=== PATIENT | female | born 1980 | race Caucasian/White ===

== ENCOUNTER 2017-05-30 15:15 | Inpatient (IN) | payer OTHER, SELFPAY ==
[2017-05-30] MEDS ORDERED: ISOVUE-370 76%-LOCM 1 ML ONE (15:44)
[2017-05-30 16:56] LABS: Bilirubin Negative (Negative); Blood, Urine Negative (Negative); Clarity CLEAR (Clear); Glucose, Urine (Dipstick) Negative (Negative); Leukocyte Negative (Negative); Nitrite Negative (Negative); Protein, Urine (Dipstick) 30 mg/dL (Neg-Trace); Specific Gravity, Urine 1.031 (1.002-1.036)
[2017-05-30 16:58] LABS: Bacteria/HPF Rare-Few HPF (None Seen); Hyaline Casts/LPF 0-3 HYALINE CAST LPF (0-3 Hyaline); Pathc Cast-AUWi Flag 0.13 (0-2.49); RBC/HPF 0-3 HPF (0-3); Squamous Epithelial 0-3 HPF (0-3); WBC/HPF 0-3 HPF (0-3)
[2017-05-30 17:03] LABS: Pregnancy Test - Urine (BHCG) Negative (Negative); Pregu Control Background? CLEAR/WHITE (CLR/WHITE); Pregu Control Bar Appear? YES (CONTROL BAR); Specific Gravity 1.031 (1.002-1.036)
[2017-05-30 17:20] LABS: #Basophils 0.1 thou/uL (0.0-0.2); #Eosinphils 0.1 thou/uL (0.0-0.7); #Lymphocytes 1.6 thou/uL (1.20-3.40); #Monocytes 0.4 thou/uL (0.11-0.59); %Eosinophils 1.4 % (0.0-10.0); %Lymphocytes 21.7 % (21.0-51.0); %Monocytes 5.7 % (0.0-10.0); %Neutrophils 70.2 % (42.0-75.0); Hemoglobin 12.6 g/dL (12.0-16.0); Mean Corpuscular HGB CONC 32.1 g/dL (32.0-36.0); Mean Corpuscular Hemoglobin 29.4 pg (27.0-31.0); Mean Corpuscular Volume 91.6 fl (81.0-99.0); Mean Platelet Volume 7.3 fL (7.4-10.4); Platelet Count 373 thou/uL (130-400); RBC Distribution Width 12.4 % (11.5-14.5); Red Blood Cell (RBC) Count 4.28 mill/uL (4.20-5.40); White Blood Cell (WBC) Count 7.2 thou/uL (4.8-10.8)
--- NOTE | 2017-05-30 17:40 | ULT ---
LEFT LOWER EXTREMITY VENOUS DUPLEX SONOGRAM: 05/30/17 HISTORY: Left leg pain and edema. FINDINGS: Good color and spectral doppler flow are present throughout the visualized deep venous structures of the left lower extremity. There is incomplete compression of the common femoral and femoral veins. Th e popliteal, posterior tibial and deep femoral veins are compressible. Lymph node is noted at the lef t groin. IMPRESSION: Deep venous thrombosis of the left leg involving the common femoral and femoral veins. Findings were called to the ER physician at 1645 hours. Code CR POS: [facility]
[2017-05-30 17:42] LABS: ALT (SGPT) 15 U/L (8-55); AST (SGOT) 23 U/L (5-34); Albumin 3.9 g/dL (3.5-5.0); Alkaline Phosphatase 85 U/L (40-150); Anion Gap 12 mmol/L (10-20); BUN (Urea Nitrogen) 14 mg/dL (7.0-18.7); Bilirubin, Total 0.2 mg/dL (0.2-1.2); Calc. Creatinine Clearance 0 mL/min (70-130); Calcium 9.8 mg/dL (7.8-10.44); Carbon Dioxide 26 mmol/L (22-29); Chloride 105 mmol/L (98-107); Estimated GFR-MDRD 77; Globulin 3.4 g/dL (2.4-3.5); Glucose 96 mg/dL (70-105); Potassium 4.3 mmol/L (3.5-5.1); Protein, Total 7.3 g/dL (6.0-8.3); Sodium 139 mmol/L (136-145)
[2017-05-30] MEDS ORDERED: Heparin 5,000 UNITS/ML VIAL ONE (19:31)
[2017-05-30] MEDS ORDERED: Heparin 25,000 units/D5W 500 ML ONE (19:31)
--- NOTE | 2017-05-30 20:53 | CT ---
CT ANGIO OF CHEST PERFORMED WITH INTRAVENOUS CONTRAST ENHANCEMENT WITH 3D RECONSTRUCTIONS: 05/30/17 HISTORY: Tachycardia. Right leg swelling. The lungs show some pleural based parenchymal changes in the right lower lobe along the major fissure . This was associated with evidence for some right lower lobe pulmonary emboli. I do not seen any ot er definitive emboli. The left lung is clear. No significant mediastinal or hilar adenopathy. The liver parenchymal shows a hypodensity within the dome of the liver, most likely a cyst. Partially visualized left kidney shows what may be dilatation of the upper collection. There also appears to b e cortical thinning. I cannot exclude an obstructing calculus. IMPRESSION: 1. Right lower lobe pulmonary embolus. 2. Slight dilatation to what is either a parapelvic cyst or dilatation to the left collecting sy stem. I only see a portion of the kidney. If indicated, CT for evaluation for a ureteral calculus is recommended. Findings discussed with Dr. Jara. POS: [facility]
[2017-05-30] MEDS ORDERED: Heparin 25,000 units/D5W 500 ML IVPB SCH ×2 (20:55→23:15)
[2017-05-30] MEDS ORDERED: Heparin 10,000 UNITS/ 10 ML VIAL SLOW IVP SCH ×2 (20:55→23:15)
[2017-05-30] MEDS ORDERED: Labetalol HCl 100 MG/20 ML VIAL SLOW IVP PRN ×2 (20:55→23:04)
[2017-05-30] MEDS ORDERED: Acetaminophen 325 MG TAB PO PRN ×2 (20:55→21:13)
[2017-05-30] MEDS ORDERED: Ondansetron HCl/PF 4 MG/2 ML Vial IVP PRN ×2 (21:13→23:04)
[2017-05-30] MEDS ORDERED: Ondansetron ODT 4 MG TAB SL PRN ×2 (21:13→23:04)
[2017-05-30 21:26] LABS: Hemoglobin 12.2 g/dL (12.0-16.0); Platelet Count 378 thou/uL (130-400)
[2017-05-30 21:37] LABS: Prothrombin Time 13.7 SEC (12.0-14.7)
[2017-05-30 22:07] LABS: D-Dimer Test 5.38 *mcg/mL (0.27-0.43)
[2017-05-30 22:19] LABS: PTT Greater than 250.0 SEC (22.9-36.1)
[2017-05-30 22:28] VITALS: BMI 27.9
[2017-05-30 23:31] LABS: PTT 165.7 SEC (22.9-36.1)
--- NOTE | 2017-05-31 03:58 | HP-2 ---
TIME AND DATE OF SERVICE: 19:30 on 05/30/2017 CODE STATUS: FULL CODE. PRIMARY CARE PHYSICIAN: Dr. Zaidi. ATTENDING: Dr. Livingston. RESIDENT: Jim Whitfield M.D. HISTORIAN: Patient. CHIEF COMPLAINT: Left leg swelling for 3 weeks. HISTORY OF PRESENT ILLNESS: Nora Del Rosario is a 36-year-old female with past medical history of kidney stones, who presents with 3-week history of left lower leg swelling and redness. She has had the sw elling and redness began 3 weeks ago and initially improved, but then started getting worse again aft er a few days that has progressively worsened since then. She denies any periods of prolonged sittin g or traveling. She denies any use of control, last use was in 2011. She denies any prior his tory of clotting or bruising issues or bleeding problems. She denies any family history of bleeding or clotting issues. Patient describes the pain as dull and worsened with movement and it has associa yojana with erythema and warmth, nothing has improved the pain, swelling, or redness. In the ER, the pa tient was started on heparin 6480 units IV push followed by heparin 18 units/kilogram per hour infusi on. PAST MEDICAL HISTORY: 1. Kidney stones. 2. Fibroids. 3. Endometriosis. PAST SURGICAL HISTORY: None. ALLERGIES: No known drug allergies. MEDICATIONS: 1. Adderall 30 mg p.o. b.i.d. 2. Motrin 800 mg p.o. p.r.n. FAMILY HISTORY: Father had liver disease. SOCIAL HISTORY: Patient denies any drugs or tobacco use, but endorses drinking socially. REVIEW OF SYSTEMS: Twelve-point review of systems including general, eyes, ENT, respiratory, CV, GI, , skin, musculoskeletal, neuro, and psych were all reviewed and within normal limits, unless other lópez stated in the HPI. PHYSICAL EXAMINATION: VITAL SIGNS: Blood pressure 178/121, pulse 91, respiratory rate 16, temperature 98.7, pulse ox 100% on room air. Current weight 81 kilograms. GENERAL: Patient is alert and oriented x3, in no acute distress. Well-developed, well-nourished, an d appropriately interactive. EYES: Pupils equal, round, reactive to light and accommodation. Extraocular muscles intact. Conjun ctivae within normal limits. ENT: Tympanic membranes pearly ptunam without bulging or erythema. Nasal mucosa and oropharynx within normal limits. NECK: Supple without lymphadenopathy or thyromegaly. CARDIOVASCULAR: Regular rate and rhythm. No murmurs or gallops. RESPIRATORY: Normal effort, no retractions. LUNGS: Clear to auscultation bilaterally. SKIN: Patient's left lower extremity has diffuse erythema and 2+ nonpitting edema. ABDOMEN: Soft, nontender, bowel sounds x4. No masses or distention. EXTREMITIES: No clubbing or cyanosis. There is 2+ nonpitting edema in the left lower extremity. MUSCULOSKELETAL: Structure and tone within normal limits. Full range of motion. NEUROLOGIC: No focal deficits. Sensation within normal limits. PSYCHIATRIC: Appropriate. LABORATORY DATA: White blood cell count 7.2, hemoglobin 12.6, hematocrit 39.2, platelets 373. Sodiu m 139, potassium 4.3, chloride 105, carbon dioxide 26, BUN 14, creatinine 0.83, glucose 96, calcium 9 .8. total protein 7.3, albumin 3.9, total bilirubin 0.2, AST 23, ALT 15, alkaline phosphatase 85. D -dimer 5.36. test was negative. UA was unremarkable. CT of the chest showed no filling d efects; however, there was a right lower lobe parenchymal changes consistent with right lower lobe pu lmonary embolism. Left lower extremity venous Doppler was significant for common femoral and femoral vein DVT. ASSESSMENT AND PLAN: A 36-year-old female with pulmonary embolism and deep venous thrombosis. 1. Pulmonary embolism. Patient is hemodynamically stable, so we will admit to tele. CT findings we re consistent with right lower lobe pulmonary embolism, which was likely secondary to deep venous thr ombosis. We will continue heparin. We will check coagulation panel. The patient is uninsured, so w e will need to bridge to warfarin. 2. Deep venous thrombosis in left lower extremity. Continue heparin. Pain management. We will lynnette ck coag panel. 3. Elevated blood pressure. P.r.n. labetalol. Continue to monitor vital signs. 4. Attention-deficit disorder, hold Adderall. 5. Code status: FULL CODE. 6. Activity: Ambulate with assist and walking program. 7. Diet: Regular. DISPOSITION AND LENGTH OF HOSPITAL STAY: 2 days. Symptomatic medications will be provided. History and physical exam as well as management were discussed with Dr. iLvingston.
--- NOTE | 2017-05-31 08:48 | PDOC.FM ---
- Subjective Subjective: Patient is lying comfortably in bed. Reports no SOB or CP. Leg swelling continues. - Objective MAR Reviewed: Yes Vital Signs & Weight: Vital Signs (12 hours) Temp Pulse Resp BP BP Pulse Ox 05/31/17 07:55 97.2 F L 77 16 145/89 H 96 05/31/17 04:27 97 05/31/17 04:08 97.6 F 80 11 L 127/76 97 05/31/17 01:43 95 135/86 05/31/17 00:20 101 H 206/106 H 99 05/31/17 00:00 97.7 F 96 13 206/106 H 99 05/30/17 22:35 98.4 F 91 18 100 Weight Weight 78.471 kg I&O: 05/30/17 05/31/17 06/01/17 06:59 06:59 06:59 Intake Total 313 Balance 313 Result Diagrams: 05/30/17 21:09 05/30/17 17:10 Phys Exam - Physical Examination Constitutional: NAD HEENT: moist MMs Respiratory: no wheezing, no rales, no rhonchi decreased breath sounds RLL Cardiovascular: RRR, no significant murmur Gastrointestinal: soft, non-tender L leg with 2+ edema from foot to thigh, warm, slightly erythematous Neurological: moves all 4 limbs Psychiatric: A&O x 3 Dx/Plan (1) DVT (deep venous thrombosis) Code(s): I82.409 - ACUTE EMBOLISM AND THOMBOS UNSP DEEP VN UNSP LOWER EXTREMITY Status: Acute (2) Pulmonary embolism Code(s): I26.99 - OTHER PULMONARY EMBOLISM WITHOUT ACUTE COR PULMONALE Status : Acute (3) Hypertensive urgency Code(s): I16.0 - HYPERTENSIVE URGENCY Status: Acute - Plan Plan: DVT with PE: - Patient on heprin ggt, will transition to Lovenox today - vs stable, not requiring O2 - uknown cause, labs pending to r/o coagulopathy - CM consult for outpatient anticoagulation financial help since uninsured Hypertensive Urgency: - resolved, likely related to stress - continue to monitor - Labetalol prn
[2017-05-31 11:17] LABS: Protein C Activity 122 % (78-152)
[2017-05-31] MEDS ORDERED: Enoxaparin Sodium 80 MG/0.8 ML SYRINGE SC SCH ×3 (11:30→21:00)
[2017-05-31 11:36] LABS: Factor VIII Test 229.3 % ACTIVE (56-157)
[2017-05-31 12:36] LABS: Prothrombin Time 13.4 SEC (12.0-14.7)
[2017-05-31 12:45] LABS: PTT 143.8 SEC (22.9-36.1)
--- NOTE | 2017-05-31 13:23 | ADD-PRG ---
DATE OF SERVICE: 05/31/2017 This is an addendum to the note of Dr. Tuyet Rubi. Ms. Del Rosario is a pleasant 36-year-old white female patient admitted with DVT and pulmonary embolus. S he has never had pulmonary embolus before; however, she does have a history of miscarriage several ye ars ago. She has no family history of thrombophilia to her knowledge, although she states that her f ather has coagulopathy. In the event, she has been started on Lovenox and given that she has no insu charles Coumadin. She is hemodynamically stable and in no distress. We have also initiated a thrombop hilia workup given her young age and prior history of miscarriage as well as unprovoked pulmonary emb olus.
[2017-05-31] MEDS: hydrALAZINE 20 MG/ML VIAL SLOW IVP PRN (16:39)
[2017-05-31] MEDS ORDERED: Warfarin Sodium 5 MG TAB PO SCH (17:00)
[2017-06-01 05:30] LABS: PTT 30.8 SEC (22.9-36.1); Prothrombin Time 13.3 SEC (12.0-14.7)
--- NOTE | 2017-06-01 07:03 | PDOC.FM ---
- Subjective Subjective: Pt seen at bedside in NAD. JENNIFER overnight. Pt denies FRANKLIN, CP, SOB, abd pain. - Objective MAR Reviewed: Yes Vital Signs & Weight: Vital Signs (12 hours) Temp Pulse Resp BP Pulse Ox 06/01/17 04:50 98.0 F 93 16 142/92 H 98 05/31/17 20:35 98.0 F 97 16 97 05/31/17 19:30 98.0 F 97 16 159/81 H 97 Weight Weight 79.061 kg I&O: 05/31/17 06/01/17 06/02/17 06:59 06:59 06:59 Intake Total 313 2360 Output Total 1800 Balance 313 560 Result Diagrams: 05/30/17 21:09 05/30/17 17:10 <Jamel Bradley - Last Filed: 06/01/17 07:51> - Objective Vital Signs & Weight: Vital Signs (12 hours) Temp Pulse Resp BP BP Pulse Ox 06/01/17 09:23 88 172/97 H 06/01/17 08:18 98 F 88 16 172/97 H 98 06/01/17 04:50 98.0 F 93 16 142/92 H 98 Weight Weight 79.061 kg I&O: 05/31/17 06/01/17 06/02/17 06:59 06:59 06:59 Intake Total 313 2360 Output Total 1800 Balance 313 560 Result Diagrams: 05/30/17 21:09 05/30/17 17:10 <Tu Butler - Last Filed: 06/01/17 14:15> Phys Exam - Physical Examination Constitutional: NAD HEENT: moist MMs Respiratory: no wheezing, clear to auscultation bilateral Cardiovascular: RRR, no significant murmur Gastrointestinal: soft, non-tender Musculoskeletal: pulses present, edema present LLE 1+, slightly erythematous, improved per pt Neurological: moves all 4 limbs Psychiatric: A&O x 3 <Jamel Bradley - Last Filed: 06/01/17 07:51> Dx/Plan (1) DVT (deep venous thrombosis) Code(s): I82.409 - ACUTE EMBOLISM AND THOMBOS UNSP DEEP VN UNSP LOWER EXTREMITY Status: Acute QualifierTitle: DVT location: lower extremity Affected thrombotic vein of extremity: femoral Chronicity: acute Laterality: left Qualified Code(s) : I82.412 - Acute embolism and thrombosis of left femoral vein Plan: -pt presented with lower extremity pain and swelling. found to have LLE DVT and possible PE. -no previous DVTs and no known risk factors. no known family history of clotting disorders. pt does have hx of miscarriage. 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 (2) Pulmonary embolism Code(s): I26.99 - OTHER PULMONARY EMBOLISM WITHOUT ACUTE COR PULMONALE Status : Acute QualifierTitle: Pulmonary embolism type: other Chronicity: acute Acute cor pulmonale presence: without acute cor pulmonale Qualified Code(s): I26.99 - Other pulmonary embolism without acute cor pulmonale Plan: -no signs of hemodynamic instability, plan per above -continue to monitor (3) HTN (hypertension) Code(s): I10 - ESSENTIAL (PRIMARY) HYPERTENSION Status: Acute QualifierTitle: Hypertension type: unspecified Qualified Code(s): I10 - Essential (primary) hypertension Plan: -pt initially thought to have elevated BP 2/2 stress -BPs have continued to be above 140/90 and required PRN medications -will start pt on amlodipine daily and cont to monitor - Plan Plan: dispo: Pt stable and doing well. Continue to bridge to warfarin and monitor. <Jamel Bradley - Last Filed: 06/01/17 07:51> Attending Addendum - Attending Addendum I personally evaluated the patient and discussed the management with Dr. Bradley. I agree with the History, Examination, Assessment and Plan documented above with any addition or exceptions noted below. She feels well except for slight stuffy nose and slight dry cough. INR 1.0. Continue Lovenox and Warfarin. <Tu Butler - Last Filed: 06/01/17 14:15>
[2017-06-01] MEDS ORDERED: Amlodipine 5 MG TAB PO SCH (09:00)
[2017-06-01] MEDS: Enoxaparin Sodium 80 MG/0.8 ML SYRINGE SC SCH ×2 (09:24→20:57)
--- NOTE | 2017-06-01 13:28 | EKG ---
Test Reason : Blood Pressure : / mmHG Vent. Rate : 104 BPM Atrial Rate : 104 BPM P-R Int : 128 ms QRS Dur : 074 ms QT Int : 352 ms P-R-T Axes : 043 048 039 degrees QTc Int : 462 ms Sinus tachycardia Minimal voltage criteria for LVH, may be normal variant Borderline ECG Confirmed by SOULEYMANE ALAN ([id number]), newspaper photo editor SHEBA MANNING ([id number]) on 06/01/2017 1:27:33 PM Referred By: Confirmed By:SOULEYMANE ALAN
[2017-06-01] MEDS ORDERED: Warfarin Sodium 7.5 MG TAB PO SCH (17:00)
[2017-06-01 21:05] LABS: Platelet Count 383 thou/uL (130-400)
[2017-06-02 05:30] LABS: PTT 36.9 SEC (22.9-36.1); Prothrombin Time 12.8 SEC (12.0-14.7)
--- NOTE | 2017-06-02 07:01 | PDOC.FM ---
- Subjective Subjective: Pt seen at bedside in NAD. JENNIFER overnight. Pt denies FRANKLIN, CP, SOB, abd pain. - Objective MAR Reviewed: Yes Vital Signs & Weight: Vital Signs (12 hours) Temp Pulse Resp BP Pulse Ox 06/02/17 04:00 97.8 F 94 24 H 173/88 H 98 06/01/17 20:00 97.9 F 93 18 168/95 H 100 06/01/17 19:40 97.9 F 93 18 100 Weight Weight 79.742 kg I&O: 05/31/17 06/01/17 06/02/17 06:59 06:59 06:59 Intake Total 313 2360 1200 Output Total 1800 1200 Balance 313 560 0 Result Diagrams: 06/01/17 20:58 05/30/17 17:10 <Jamel Bradley - Last Filed: 06/02/17 07:51> - Objective Vital Signs & Weight: Vital Signs (12 hours) Temp Pulse Resp BP BP Pulse Ox 06/02/17 11:30 98.6 F 98 18 178/98 H 97 06/02/17 08:47 87 162/96 H 06/02/17 08:45 97.8 F 87 18 162/96 H 98 06/02/17 04:00 97.8 F 94 24 H 173/88 H 98 Weight Weight 79.742 kg I&O: 06/01/17 06/02/17 06/03/17 06:59 06:59 06:59 Intake Total 2360 1200 Output Total 1800 1200 Balance 560 0 Result Diagrams: 06/01/17 20:58 05/30/17 17:10 <Tu Butler - Last Filed: 06/02/17 14:27> Phys Exam - Physical Examination Constitutional: NAD HEENT: moist MMs Respiratory: no wheezing, clear to auscultation bilateral Cardiovascular: RRR, no significant murmur Gastrointestinal: soft, non-tender Musculoskeletal: pulses present, edema present LLE 1+, slightly erythematous Neurological: moves all 4 limbs Psychiatric: A&O x 3 Skin: cap refill <2 seconds <Jamel Bradley - Last Filed: 06/02/17 07:51> Dx/Plan (1) DVT (deep venous thrombosis) Code(s): I82.409 - ACUTE EMBOLISM AND THOMBOS UNSP DEEP VN UNSP LOWER EXTREMITY Status: Acute QualifierTitle: DVT location: lower extremity Affected thrombotic vein of extremity: femoral Chronicity: acute Laterality: left Qualified Code(s) : I82.412 - Acute embolism and thrombosis of left femoral vein Plan: -pt presented with lower extremity pain and swelling. found to have LLE DVT and possible PE. -no previous DVTs and no known risk factors. no known family history of clotting disorders. pt does have hx of miscarriage. 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 (2) Pulmonary embolism Code(s): I26.99 - OTHER PULMONARY EMBOLISM WITHOUT ACUTE COR PULMONALE Status : Acute QualifierTitle: Pulmonary embolism type: other Chronicity: acute Acute cor pulmonale presence: without acute cor pulmonale Qualified Code(s): I26.99 - Other pulmonary embolism without acute cor pulmonale Plan: -no signs of hemodynamic instability, plan per above -continue to monitor (3) HTN (hypertension) Code(s): I10 - ESSENTIAL (PRIMARY) HYPERTENSION Status: Acute QualifierTitle: Hypertension type: unspecified Qualified Code(s): I10 - Essential (primary) hypertension Plan: -pt initially thought to have elevated BP 2/2 stress -BPs have continued to be above 140/90 and required PRN medications -increase to amlodipine 10 mg daily and continue to monitor - Plan Plan: dispo: Pt stable and doing well. Continue to bridge to warfarin and monitor. Continue to monitor BP. <Jamel Bradley - Last Filed: 06/02/17 07:51> Attending Addendum - Attending Addendum I personally evaluated the patient and discussed the management with Dr. Bradley. I agree with the History, Examination, Assessment and Plan documented above with any addition or exceptions noted below. Feels fine. Exam as above. BP elevated so Amlodipine increased to 10 mg daily. INR stable at 1.0 so increased warfarin to 7.5 mg. <Tu Butler - Last Filed: 06/02/17 14:27>
[2017-06-02] MEDS: Amlodipine 10 MG TAB PO SCH (08:47)
[2017-06-02] MEDS: Enoxaparin Sodium 80 MG/0.8 ML SYRINGE SC SCH ×2 (08:47→21:45)
[2017-06-02] MEDS: Acetaminophen 325 MG TAB PO PRN (15:32)
[2017-06-02] MEDS: Warfarin Sodium 10 MG TAB PO SCH (17:41)
[2017-06-03 05:41] LABS: INR-International Normal Ratio 1.1; Prothrombin Time 14.7 SEC (12.0-14.7)
[2017-06-03 05:42] LABS: PTT 40.7 SEC (22.9-36.1)
--- NOTE | 2017-06-03 08:02 | PDOC.FM ---
- Subjective Subjective: Pt seen at bedside in NAD. JENNIFER overnight. Pt denies FRANKLIN, CP, SOB, abd pain. - Objective MAR Reviewed: Yes Vital Signs & Weight: Vital Signs (12 hours) Temp Pulse Resp BP Pulse Ox 06/03/17 04:15 98.5 F 99 16 149/98 H 97 06/02/17 23:50 98.5 F 101 H 20 152/83 H 98 06/02/17 20:15 98.6 F 94 20 99 Weight Weight 79.742 kg I&O: 06/02/17 06/03/17 06/04/17 06:59 06:59 06:59 Intake Total 1200 1500 Output Total 1200 Balance 0 1500 Result Diagrams: 06/01/17 20:58 05/30/17 17:10 Additional Labs: INR 1.1 Phys Exam - Physical Examination Constitutional: NAD HEENT: moist MMs Respiratory: no wheezing, clear to auscultation bilateral Cardiovascular: RRR, no significant murmur Gastrointestinal: soft, non-tender Musculoskeletal: pulses present, edema present LLE 1+, slightly erythematous Neurological: moves all 4 limbs Psychiatric: A&O x 3 Skin: cap refill <2 seconds Dx/Plan (1) DVT (deep venous thrombosis) Code(s): I82.409 - ACUTE EMBOLISM AND THOMBOS UNSP DEEP VN UNSP LOWER EXTREMITY Status: Acute Qualifiers: DVT location: lower extremity Affected thrombotic vein of extremity: femoral Chronicity: acute Laterality: left Qualified Code(s): I82.412 - Acute embolism and thrombosis of left femoral vein Plan: -pt presented with lower extremity pain and swelling. found to have LLE DVT and possible PE. -no previous DVTs and no known risk factors. no known family history of clotting disorders. pt does have hx of miscarriage. 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 (2) Pulmonary embolism Code(s): I26.99 - OTHER PULMONARY EMBOLISM WITHOUT ACUTE COR PULMONALE Status : Acute Qualifiers: Pulmonary embolism type: other Chronicity: acute Acute cor pulmonale presence: without acute cor pulmonale Qualified Code(s): I26.99 - Other pulmonary embolism without acute cor pulmonale Plan: -no signs of hemodynamic instability, plan per above -continue to monitor (3) HTN (hypertension) Code(s): I10 - ESSENTIAL (PRIMARY) HYPERTENSION Status: Acute Qualifiers: Hypertension type: unspecified Qualified Code(s): I10 - Essential (primary ) hypertension Plan: -pt initially thought to have elevated BP 2/2 stress -BPs have continued to be above 140/90 and required PRN medications -increase to amlodipine 10 mg daily and continue to monitor - Plan Plan: dispo: Pt stable and doing well. Continue to bridge to warfarin and monitor. Continue to monitor BP.
[2017-06-03] MEDS: Amlodipine 10 MG TAB PO SCH (09:35)
[2017-06-03] MEDS: Enoxaparin Sodium 80 MG/0.8 ML SYRINGE SC SCH ×2 (09:36→21:42)
--- NOTE | 2017-06-03 15:25 | PRG ---
DATE OF SERVICE: 06/03/2017 Ms. Del Rosario's INR is still not therapeutic, and we are adjusting her Coumadin accordingly. She is in no distress. She is having no leg pain or shortness of breath. She is anxious for discharge and we will accomplish this as soon as her INR is therapeutic.
[2017-06-03] MEDS: Warfarin Sodium 10 MG TAB PO SCH (17:23)
[2017-06-03] MEDS: diphenhydrAMINE 50 MG CAP PO PRN (17:56)
[2017-06-03 21:14] LABS: Hemoglobin 12.2 g/dL (12.0-16.0); Platelet Count 378 thou/uL (130-400)
[2017-06-03] MEDS: hydrALAZINE 20 MG/ML VIAL SLOW IVP PRN (21:42)
[2017-06-04 05:55] LABS: PTT 41.6 SEC (22.9-36.1)
[2017-06-04 05:59] LABS: INR-International Normal Ratio 1.3; Prothrombin Time 16.5 SEC (12.0-14.7)
--- NOTE | 2017-06-04 07:52 | PDOC.FM ---
- Subjective Subjective: Pt seen at bedside in NAD. JENNIFER overnight but pt notes being emotional. Pt denies FRANKLIN, CP, SOB, abd pain. - Objective MAR Reviewed: Yes Vital Signs & Weight: Vital Signs (12 hours) Temp Pulse Resp BP BP Pulse Ox 06/04/17 05:21 99.3 F 110 H 06/04/17 04:53 99.3 F 118 H 18 123/76 98 06/04/17 00:27 98.9 F 123 H 18 146/88 H 100 06/03/17 21:42 105 H 168/95 H 06/03/17 20:50 98.7 F 105 H 18 98 06/03/17 20:46 98.7 F 18 98 Weight Weight 79.742 kg I&O: 06/03/17 06/04/17 06/05/17 06:59 06:59 06:59 Intake Total 1500 970 Balance 1500 970 Result Diagrams: 06/03/17 20:54 05/30/17 17:10 Additional Labs: INR 1.3 Phys Exam - Physical Examination Constitutional: NAD HEENT: moist MMs Respiratory: no wheezing, clear to auscultation bilateral Cardiovascular: RRR, no significant murmur Gastrointestinal: soft, non-tender Musculoskeletal: pulses present Neurological: moves all 4 limbs Psychiatric: normal affect, A&O x 3 Skin: cap refill <2 seconds Dx/Plan (1) DVT (deep venous thrombosis) Code(s): I82.409 - ACUTE EMBOLISM AND THOMBOS UNSP DEEP VN UNSP LOWER EXTREMITY Status: Acute Qualifiers: DVT location: lower extremity Affected thrombotic vein of extremity: femoral Chronicity: acute Laterality: left Qualified Code(s): I82.412 - Acute embolism and thrombosis of left femoral vein Plan: -pt presented with lower extremity pain and swelling. found to have LLE DVT and possible PE. -no previous DVTs and no known risk factors. no known family history of clotting disorders. pt does have hx of miscarriage. 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 (2) Pulmonary embolism Code(s): I26.99 - OTHER PULMONARY EMBOLISM WITHOUT ACUTE COR PULMONALE Status : Acute Qualifiers: Pulmonary embolism type: other Chronicity: acute Acute cor pulmonale presence: without acute cor pulmonale Qualified Code(s): I26.99 - Other pulmonary embolism without acute cor pulmonale Plan: -no signs of hemodynamic instability, plan per above -continue to monitor (3) HTN (hypertension) Code(s): I10 - ESSENTIAL (PRIMARY) HYPERTENSION Status: Acute Qualifiers: Hypertension type: unspecified Qualified Code(s): I10 - Essential (primary ) hypertension Plan: -pt initially thought to have elevated BP 2/2 stress -BPs have continued to be above 140/90 and required PRN medications -increase to amlodipine 10 mg daily and continue to monitor - Plan Plan: dispo: Pt stable and doing well. Tachycardia overnight likely due to emotional stress. Pt already being treated for DVT/PE. Continue to bridge to warfarin and monitor. Continue to monitor BP.
[2017-06-04] MEDS: Enoxaparin Sodium 80 MG/0.8 ML SYRINGE SC SCH ×2 (09:19→20:51)
[2017-06-04] MEDS: Amlodipine 10 MG TAB PO SCH (09:20)
--- NOTE | 2017-06-04 09:36 | ADD-PRG ---
DATE OF SERVICE: 06/04/2017 This is an addendum to the note of Dr. Jamel Bradley. Ms. Del Rosario is resting quietly in bed in no distress. Her vital signs this morning are normal. She h as had no shortness of breath. We are still adjusting her Coumadin and this morning's INR is 1.3. O nce she gets above 2 we will be able to discharge her to continue managing her Coumadin as an outpati ent. We are also awaiting results of a thrombophilia workup given her young age and history of misca rriage.
[2017-06-04] MEDS: Warfarin Sodium 7.5 MG TAB PO SCH (17:20)
[2017-06-05 06:36] LABS: INR-International Normal Ratio 1.5; PTT 49.6 SEC (22.9-36.1); Prothrombin Time 18.4 SEC (12.0-14.7)
--- NOTE | 2017-06-05 08:23 | PDOC.FM ---
- Subjective Subjective: Pt seen at bedside in NAD. JENNIFER overnight but pt notes being emotional. Pt denies FRANKLIN, CP, SOB, abd pain. - Objective MAR Reviewed: Yes Vital Signs & Weight: Vital Signs (12 hours) Temp Pulse Resp BP Pulse Ox 06/05/17 08:00 98.6 F 84 20 133/74 98 06/05/17 04:00 98.6 F 100 16 134/84 97 06/05/17 00:00 98.8 F 105 H 19 148/87 H 99 06/04/17 20:50 99.1 F 106 H 18 Weight Weight 79.742 kg I&O: 06/04/17 06/05/17 06/06/17 06:59 06:59 06:59 Intake Total 970 860 Balance 970 860 Result Diagrams: 06/03/17 20:54 05/30/17 17:10 Additional Labs: INR 1.5 Phys Exam - Physical Examination Constitutional: [facility] HEENT: moist MMs Respiratory: no wheezing, clear to auscultation bilateral Cardiovascular: RRR, no significant murmur Gastrointestinal: soft, non-tender Musculoskeletal: pulses present Neurological: moves all 4 limbs Psychiatric: normal affect, A&O x 3 Skin: cap refill <2 seconds Dx/Plan (1) DVT (deep venous thrombosis) Code(s): I82.409 - ACUTE EMBOLISM AND THOMBOS UNSP DEEP VN UNSP LOWER EXTREMITY Status: Acute Qualifiers: DVT location: lower extremity Affected thrombotic vein of extremity: femoral Chronicity: acute Laterality: left Qualified Code(s): I82.412 - Acute embolism and thrombosis of left femoral vein Plan: -pt presented with lower extremity pain and swelling. found to have LLE DVT and possible PE. -no previous DVTs and no known risk factors. no known family history of clotting disorders. pt does have hx of miscarriage. 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 (2) Pulmonary embolism Code(s): I26.99 - OTHER PULMONARY EMBOLISM WITHOUT ACUTE COR PULMONALE Status : Acute Qualifiers: Pulmonary embolism type: other Chronicity: acute Acute cor pulmonale presence: without acute cor pulmonale Qualified Code(s): I26.99 - Other pulmonary embolism without acute cor pulmonale Plan: -no signs of hemodynamic instability, plan per above -continue to monitor (3) HTN (hypertension) Code(s): I10 - ESSENTIAL (PRIMARY) HYPERTENSION Status: Acute Qualifiers: Hypertension type: unspecified Qualified Code(s): I10 - Essential (primary ) hypertension Plan: -pt initially thought to have elevated BP 2/2 stress -BPs have continued to be above 140/90 and required PRN medications -increase to amlodipine 10 mg daily and continue to monitor - Plan Plan: dispo: Pt stable and doing well. Tachycardia overnight likely due to emotional stress. Pt already being treated for DVT/PE. Continue to bridge to warfarin and monitor. Continue to monitor BP.
[2017-06-05] MEDS: Amlodipine 10 MG TAB PO SCH (09:09)
[2017-06-05] MEDS: Enoxaparin Sodium 80 MG/0.8 ML SYRINGE SC SCH ×2 (09:10→21:27)
--- NOTE | 2017-06-05 10:51 | ADD-PRG ---
This is an addendum to the note of Dr. Jamel Bradley. Ms. Del Rosario's INR is gradually increasing, still not therapeutic. We are adjusting her Coumadin daily and plan to discharge when her INR reached to greater than 2.0. She will need to followup with her PCP to continue monitoring. She will also need to follow up on the results of her thrombophilia studies, which are still pending. MARKD
[2017-06-05] MEDS: Warfarin Sodium 7.5 MG TAB PO SCH (17:23)
[2017-06-05] MEDS: diphenhydrAMINE 50 MG CAP PO PRN (19:19)
[2017-06-06 06:19] LABS: INR-International Normal Ratio 1.7; PTT 54.3 SEC (22.9-36.1); Prothrombin Time 20.1 SEC (12.0-14.7)
--- NOTE | 2017-06-06 06:23 | PDOC.FM ---
- Subjective Subjective: Nora Del Rosario is doing well this morning, seen at bedside. She has no complaints or concerns. Understands that we are waiting for her INR to become therapeutic. She is in good spirits. - Objective MAR Reviewed: Yes Vital Signs & Weight: Vital Signs (12 hours) Temp Pulse Resp BP Pulse Ox 06/06/17 03:50 98.9 F 81 18 142/88 H 97 06/06/17 00:13 98.7 F 100 18 136/84 98 06/05/17 21:15 98.3 F 94 18 153/91 H 98 06/05/17 20:15 98.3 F 94 18 Weight Weight 79.742 kg I&O: 06/04/17 06/05/17 06/06/17 06:59 06:59 06:59 Intake Total 970 860 700 Balance 970 860 700 Result Diagrams: 06/03/17 20:54 05/30/17 17:10 <Jim Whitfield - Last Filed: 06/06/17 09:09> - Objective Vital Signs & Weight: Vital Signs (12 hours) Temp Pulse Resp BP BP Pulse Ox 06/06/17 12:17 98.2 F 100 20 145/81 H 97 06/06/17 09:28 92 136/81 06/06/17 08:18 97.9 F 92 20 136/81 97 06/06/17 08:00 97.9 F 92 20 97 06/06/17 03:50 98.9 F 81 18 142/88 H 97 Weight Weight 79.742 kg I&O: 06/05/17 06/06/17 06/07/17 06:59 06:59 06:59 Intake Total 860 1550 Balance 860 1550 Result Diagrams: 06/03/17 20:54 05/30/17 17:10 <Kenia Stanley - Last Filed: 06/06/17 13:04> Phys Exam - Physical Examination Constitutional: NAD HEENT: moist MMs, sclera anicteric Neck: no JVD, supple, full ROM Respiratory: no wheezing, no rales, no rhonchi, clear to auscultation bilateral Cardiovascular: RRR, no significant murmur, no rub Gastrointestinal: soft, non-tender, no distention Musculoskeletal: no edema Neurological: normal sensation, moves all 4 limbs Psychiatric: normal affect, A&O x 3 Deviation from normal: circular abrasion for BP cuff on post aspect of L arm, xeroderma on back <Jim Whitfield - Last Filed: 06/06/17 09:09> Dx/Plan (1) DVT (deep venous thrombosis) Code(s): I82.409 - ACUTE EMBOLISM AND THOMBOS UNSP DEEP VN UNSP LOWER EXTREMITY Status: Acute QualifierTitle: DVT location: lower extremity Affected thrombotic vein of extremity: femoral Chronicity: acute Laterality: left Qualified Code(s) : I82.412 - Acute embolism and thrombosis of left femoral vein Plan: -Pt presented with LE pain and swelling, found to have LLE DVT and possible PE -No prev DVTs and no known risk factors. 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, more thrombophilia studies pending - (2) Pulmonary embolism Code(s): I26.99 - OTHER PULMONARY EMBOLISM WITHOUT ACUTE COR PULMONALE Status : Acute QualifierTitle: Pulmonary embolism type: other Chronicity: acute Acute cor pulmonale presence: without acute cor pulmonale Qualified Code(s): I26.99 - Other pulmonary embolism without acute cor pulmonale Plan: No signs of hemodynamic instability -continue to monitor (3) HTN (hypertension) Code(s): I10 - ESSENTIAL (PRIMARY) HYPERTENSION Status: Acute QualifierTitle: Hypertension type: unspecified Qualified Code(s): I10 - Essential (primary) hypertension Plan: BPs elevated on admission due to stress -Amlodipine increased to 10 mg daily 3 days ago -will continue to monitor BPs <Jim Whitfield - Last Filed: 06/06/17 09:09> Attending Addendum - Attending Addendum I personally evaluated the patient and discussed the management with Dr. Whitfield. I agree with the History, Examination, Assessment and Plan documented above with any addition or exceptions noted below. The patient is doing well. INR is subtherapeutic. Continue adjusting coumadin dosing. <Kenia Stanley - Last Filed: 06/06/17 13:04>
[2017-06-06] MEDS: Amlodipine 10 MG TAB PO SCH (09:28)
[2017-06-06] MEDS: Enoxaparin Sodium 80 MG/0.8 ML SYRINGE SC SCH ×2 (09:28→21:27)
[2017-06-06] MEDS: Acetaminophen 325 MG TAB PO PRN (09:30)
[2017-06-06] MEDS: Ibuprofen 600 MG TAB PO PRN (16:22)
[2017-06-06] MEDS ORDERED: Warfarin Sodium 2.5 MG TAB PO SCH (17:00)
[2017-06-06] MEDS: Warfarin Sodium 7.5 MG TAB PO SCH (17:37)
[2017-06-06 18:10] LABS: Hexagonal Phospholipid Neut 6 sec (.)
[2017-06-07 06:35] LABS: Hemoglobin 12.1 g/dL (12.0-16.0); Platelet Count 274 thou/uL (130-400)
[2017-06-07 06:38] LABS: INR-International Normal Ratio 2.3; PTT 59.3 SEC (22.9-36.1); Prothrombin Time 26.3 SEC (12.0-14.7)
[2017-06-07 06:58] LABS: Calc. Creatinine Clearance 133 mL/min (70-130); Estimated GFR-MDRD Greater than 90
--- NOTE | 2017-06-07 07:53 | PDOC.FM ---
- Subjective Subjective: Nora Del Rosario is doing well today. She has no complaints. No acute events overnight. Denies fever, FRANKLIN, chest pain, dyspnea. - Objective MAR Reviewed: Yes Vital Signs & Weight: Vital Signs (12 hours) Temp Pulse Resp BP Pulse Ox 06/07/17 04:00 97.9 F 88 18 143/85 H 98 06/07/17 00:00 98.2 F 85 16 157/90 H 98 06/06/17 21:27 98.4 F 71 18 99 06/06/17 20:00 98.4 F 71 18 149/93 H 99 Weight Weight 79.742 kg I&O: 06/06/17 06/07/17 06/08/17 06:59 06:59 06:59 Intake Total 1550 1330 Balance 1550 1330 Result Diagrams: 06/07/17 05:57 06/07/17 05:57 <Jim Whitfield - Last Filed: 06/07/17 12:09> - Objective Vital Signs & Weight: Vital Signs (12 hours) Temp Pulse Resp BP Pulse Ox 06/07/17 15:56 98.3 F 99 21 H 159/93 H 98 06/07/17 12:00 97.7 F 95 18 143/90 H 100 06/07/17 08:00 97.9 F 87 18 151/93 H 99 Weight Weight 79.742 kg I&O: 06/06/17 06/07/17 06/08/17 06:59 06:59 06:59 Intake Total 1550 1330 Balance 1550 1330 Result Diagrams: 06/07/17 05:57 06/07/17 05:57 <Kenia Stanley - Last Filed: 06/07/17 19:51> Phys Exam - Physical Examination Constitutional: NAD HEENT: moist MMs, sclera anicteric Neck: no JVD, supple, full ROM Respiratory: no wheezing, no rales, no rhonchi, clear to auscultation bilateral Cardiovascular: RRR, no significant murmur, no rub Gastrointestinal: soft, non-tender, no distention Musculoskeletal: no edema, pulses present Neurological: non-focal, normal sensation, moves all 4 limbs Psychiatric: normal affect, A&O x 3 <Jim Whitfield - Last Filed: 06/07/17 12:09> Dx/Plan (1) DVT (deep venous thrombosis) Code(s): I82.409 - ACUTE EMBOLISM AND THOMBOS UNSP DEEP VN UNSP LOWER EXTREMITY Status: Acute QualifierTitle: DVT location: lower extremity Affected thrombotic vein of extremity: femoral Chronicity: acute Laterality: left Qualified Code(s) : I82.412 - Acute embolism and thrombosis of left femoral vein Plan: -Pt presented with LE pain and swelling, found to have LLE DVT and possible PE -No prev DVTs and no known risk factors. 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, more thrombophilia studies pending - (2) Pulmonary embolism Code(s): I26.99 - OTHER PULMONARY EMBOLISM WITHOUT ACUTE COR PULMONALE Status : Acute QualifierTitle: Pulmonary embolism type: other Chronicity: acute Acute cor pulmonale presence: without acute cor pulmonale Qualified Code(s): I26.99 - Other pulmonary embolism without acute cor pulmonale Plan: No signs of hemodynamic instability -continue to monitor (3) HTN (hypertension) Code(s): I10 - ESSENTIAL (PRIMARY) HYPERTENSION Status: Acute QualifierTitle: Hypertension type: unspecified Qualified Code(s): I10 - Essential (primary) hypertension Plan: BPs elevated on admission due to stress -Amlodipine increased to 10 mg daily 4 days ago -will continue to monitor BPs <Jim Whitfield - Last Filed: 06/07/17 12:09> Attending Addendum - Attending Addendum I personally evaluated the patient and discussed the management with Dr. Whitfield. I agree with the History, Examination, Assessment and Plan documented above with any addition or exceptions noted below. The patient's INR is therapeutic. She will be discharged home and given scripts to get an INR checked as an outpt at urgent care over the weekend. She also has f/u set up with [facility]. <Kenia Stanley - Last Filed: 06/07/17 19:51>
[2017-06-07] MEDS: Enoxaparin Sodium 80 MG/0.8 ML SYRINGE SC SCH (09:35)
[2017-06-07] MEDS: Amlodipine 10 MG TAB PO SCH (09:36)
--- NOTE | 2017-06-07 14:24 | DIS-2 ---
DATE OF ADMISSION: 05/30/2017 DATE OF DISCHARGE: 06/07/2017 RESIDENT: Jim Whitfield M.D. ADMITTING ATTENDING: Dr. Livingston. DISCHARGE ATTENDING: Dr. Stanley. CONSULTATIONS: None. PROCEDURES: 1. CTA of the chest with and without contrast. Impression: Right lower lobe pulmonary embolus. 2. Left lower extremity venous duplex sonogram. Impression: Deep venous thrombosis of the left leg involving the common femoral and femoral veins. PRIMARY DIAGNOSES: 1. Pulmonary embolism. 2. Deep venous thrombosis. SECONDARY DIAGNOSES: 1. Elevated blood pressure. 2. Attention deficit disorder. DISCHARGE MEDICATIONS: Resume home medications. 1. Ibuprofen 800 mg p.o. q.8 hours p.r.n. 2. Adderall 30 mg p.o. b.i.d. New home medications: 1. Norvasc 10 mg p.o. daily. 2. Coumadin 17.5 mg p.o. at 5:00 p.m. every day. DISCONTINUED MEDICATIONS: 1. Tylenol 650 mg p.o. q.4 hours p.r.n. 2. Labetalol 20 mg IV push q.4 hours p.r.n. 3. Lovenox 80 mg subcu b.i.d. HISTORY OF PRESENT ILLNESS AND HOSPITAL COURSE: Ms. Nora Del Rosario is a 36-year-old female with past m edical history of kidney stones who presents with a 3 week history of left lower leg swelling and red ness. The swelling and redness that began 3 weeks ago, had initially improved, but started getting w orse after a few days and has progressively worsened since then. She denied any prolonged periods of sitting or traveling. She also denied any use of control. Last use was in 2011. She denies any prior history of clotting, bruising or bleeding problems. She denies any family history of bleed ing or clotting issues. Patient describes the pain as dull and worsened with movement and it is asso ciated with erythema and warmth. Nothing has improved with pain. In the ER, she got heparin followe d by heparin infusion. Her blood pressure on admission was 178/121 requiring some IV blood pressure medications. DVT was seen on ultrasound and a pulmonary embolism was seen on CT. The patient was st arted on warfarin as well as Lovenox to bridge. Warfarin was slowly titrated up and managed by Pharm acy. Patient was slow to have an INR rise, which is why her admission was over 5 days. INR started of as 1.0 on the and it increased to 1.1, then 1.3, then 1.5, then 1.7 and 2.3 on day of dischar ge which was on 06/07/2017. The patient was discharged with instruction and prescriptions to [facility] to have INRs checked and have INRs results called to residents. The patient was in agreement with this plan and understood the importance of having her INR checked. The patient wa s stable for discharge once her INRs had reached therapeutic levels. The last 4-5 days of admission were very uneventful for the patient. The patient was in agreement with this plan and was ready for discharge on 06/07/2017. DISPOSITION: The patient should do well if she follows up with having her INRs checked and having th e results of the INRs relayed to [facility] as well as keeping her followup appointment with [facility] on 06/11/2017. DISCHARGE INSTRUCTIONS: 1. Location: Home. 2. Diet: Heart healthy. 3. Activity: As tolerated. 4. Follow up with [facility] to have INRs checked on Saturday, Saturday and Saturday and follow up w [facility] on Saturday.
[2017-06-07] MEDS: Ibuprofen 600 MG TAB PO PRN (15:01)
[2017-06-07 15:57] VITALS: BP 159/93; TEMP 98.3
== END 2017-06-07 16:00 | disposition home or self-care (01) | DRG 299 ==
LOC: ERS 15:15 → 2NO 22:18 → SURG A 06-02 12:11
PROVIDERS: ADMIT Family Medicine; ATTEND Family Medicine
DX: I82.412 Acute embolism and thrombosis of left femoral vein (principal); I26.99 Other pulmonary embolism without acute cor pulmonale; F98.8 Other specified behavioral and emotional disorders with onset usually occurring in childhood and adolescence; I10 Essential (primary) hypertension; I16.0 Hypertensive urgency
CPT/HCPCS: 36415; 71275; 80053; 81003; 81015; 81025; 81240; 82565; 83090; 85014; 85018; 85025; 85049; 85240; 85245; 85246; 85300; 85303; 85305; 85307; 85379; 85598; 85610; 85730; 93005; 96365; 96366; 96375; A4216; J0360; J1644; J1650

== ENCOUNTER 2017-06-10 09:14 | Emergency (ER) | payer OTHER, SELFPAY ==
[2017-06-10 11:10] LABS: #Lymphocytes 1.3 thou/uL (1.20-3.40); #Monocytes 0.3 thou/uL (0.11-0.59); #Neutrophils 4.4 thou/uL (1.40-6.50); %Basophils 0.1 % (0.0-1.0); %Eosinophils 0.8 % (0.0-10.0); %Lymphocytes 21.9 % (21.0-51.0); %Monocytes 4.7 % (0.0-10.0); %Neutrophils 72.5 % (42.0-75.0); Hemoglobin 12.4 g/dL (12.0-16.0); Mean Corpuscular HGB CONC 32.8 g/dL (32.0-36.0); Mean Corpuscular Hemoglobin 29.8 pg (27.0-31.0); Mean Corpuscular Volume 90.7 fl (81.0-99.0); Mean Platelet Volume 7.5 fL (7.4-10.4); Platelet Count 168 thou/uL (130-400); RBC Distribution Width 12.1 % (11.5-14.5); Red Blood Cell (RBC) Count 4.15 mill/uL (4.20-5.40)
[2017-06-10 11:17] LABS: INR-International Normal Ratio 3.4; Prothrombin Time 35.7 SEC (12.0-14.7)
[2017-06-10 11:18] LABS: PTT 53.2 SEC (22.9-36.1)
[2017-06-10 11:24] LABS: ALT (SGPT) 94 U/L (8-55); AST (SGOT) 51 U/L (5-34); Albumin 3.7 g/dL (3.5-5.0); Alkaline Phosphatase 96 U/L (40-150); Anion Gap 14 mmol/L (10-20); BUN (Urea Nitrogen) 11 mg/dL (7.0-18.7); Bilirubin, Total 0.2 mg/dL (0.2-1.2); Calc. Creatinine Clearance 0 mL/min (70-130); Calcium 9.3 mg/dL (7.8-10.44); Carbon Dioxide 23 mmol/L (22-29); Chloride 105 mmol/L (98-107); Estimated GFR-MDRD Greater than 90; Globulin 3.4 g/dL (2.4-3.5); Glucose 93 mg/dL (70-105); Potassium 4.6 mmol/L (3.5-5.1); Protein, Total 7.1 g/dL (6.0-8.3); Sodium 137 mmol/L (136-145)
--- NOTE | 2017-06-10 11:44 | ULT ---
LEFT LOWER EXTREMITY VENOUS DOPPLER: HISTORY: Recent cough and hemoptysis. COMPARISON: Left lower extremity venous Doppler 05/30/17. TECHNIQUE: Real-time putnam scale, color Doppler, with spectral analysis of the left lower extremity venous system is performed with a linear ray transducer. The common femoral, femoral, proximal portion of greater saphenous and deep femoral vein as well as the popliteal posterior tibial veins were interrogated. There is occlusive thrombosis in the left common femoral, greater saphenous, and proximal femoral vei n with partial thrombosis distal femoral vein. There is flow within the popliteal and posterior tibi al veins. IMPRESSION: No significant interval improvement in left lower extremity thrombosis. This involves the left commo n femoral, femoral, and greater saphenous veins. A total of 4 attempts to contact the ordering provider were made. CODE T POS: KRISTINA
--- NOTE | 2017-06-10 11:53 | RAD ---
TWO VIEWS OF THE CHEST: Date: 06-10-17 Comparison: None. History: Recent pulmonary embolism, cough, hemoptysis. FINDINGS: No pneumothorax or pleural fluid. No focal consolidation or alveolar edema. Heart and mediastinal con tours are unremarkable. IMPRESSION: No acute findings. POS: [facility]
== END 2017-06-10 13:13 | disposition home or self-care (01) ==
LOC: ERS 09:14
DX: R04.2 Hemoptysis (principal); F41.9 Anxiety disorder, unspecified; Z86.711 Personal history of pulmonary embolism; Z86.718 Personal history of other venous thrombosis and embolism; Z79.899 Other long term (current) drug therapy
CPT/HCPCS: 36415; 71046; 80053; 85025; 85610; 85730

== ENCOUNTER 2017-06-13 09:47 | Inpatient (IN) | payer SELFPAY ==
[2017-06-13 10:48] LABS: INR-International Normal Ratio 2.9; PTT 50.1 SEC (22.9-36.1)
--- NOTE | 2017-06-13 11:32 | ULT ---
ULTRASOUND WITH DOPPLER DUPLEX VENOUS LOWER EXTREMITY LEFT: Date: 06/13/17 Time: 1049 hours HISTORY: [id number] female with deep venous thrombosis of left lower extremity, with worsening of left lower extremity swelling and edema despite therapy. Dr. Eagle reported the worsening of the findings by telephone to medical assistant instructor, Suzanne Membreno, at 1121 hours on 06/13/17. She was instructed to notify Dr. Colt Lance as soon as possible. COMPARISON: 06/10/17. TECHNIQUE: Color flow Doppler, spectral waveform analysis of pulsed Doppler, and putnam-scale imaging with tete mariah and augmentation, were used to evaluate the left common femoral, femoral, popliteal, posterior t ibial, and superficial femoral, veins; and the proximal portions of the profunda femoral and greater saphenous, veins. FINDINGS: The thrombus of the deep veins is expanding the veins to a greater degree than before. Whereas previo usly only the greater saphenous, common femoral, and proximal portion of the femoral, veins were occl uded; now all of these veins, plus the distal portion of the femoral vein, popliteal vein, and the po sterior tibial vein, are now occluded. There is a greater degree of distention of the veins in the th igh now. IMPRESSION: Interval worsening, progression of the deep vein thrombosis, now involving the entire left lower extr emity. ADDENDUM: Dr. Eagle discussed the CT findings with Dr. 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 CODE CR. ZECHARIAH R POS: KRISTINA
[2017-06-13] MEDS ORDERED: Iopamidol 370 76% 100 ML VIAL ONE (11:56)
[2017-06-13 12:12] LABS: #Eosinphils 0.1 thou/uL (0.0-0.7); #Lymphocytes 1.6 thou/uL (1.20-3.40); #Monocytes 0.7 thou/uL (0.11-0.59); #Neutrophils 8.6 thou/uL (1.40-6.50); %Basophils 0.3 % (0.0-1.0); %Eosinophils 0.8 % (0.0-10.0); %Lymphocytes 14.5 % (21.0-51.0); %Neutrophils 78.4 % (42.0-75.0); Hemoglobin 12.5 g/dL (12.0-16.0); Mean Corpuscular Hemoglobin 29.1 pg (27.0-31.0); Mean Corpuscular Volume 90.8 fl (81.0-99.0); Mean Platelet Volume 7.5 fL (7.4-10.4); Platelet Count 265 thou/uL (130-400); Red Blood Cell (RBC) Count 4.29 mill/uL (4.20-5.40); White Blood Cell (WBC) Count 10.9 thou/uL (4.8-10.8)
--- NOTE | 2017-06-13 12:18 | ULT ---
TRANSABDOMINAL AND TRANSVAGINAL PELVIC SONOGRAPHY WITH DOPPLER: Date: 06/13/17 PROVIDED CLINICAL HISTORY: Left hemipelvic mass. FINDINGS: Comparison made with CT examination performed on 09/11/16. A large left hemipelvic mass is redemonstrated. This measures approximately 12.2 cm in greatest trans verse dimension. This may represent an exophytic uterine fibroid, but it is incompletely characterize d on the basis of this study. This appears, in general, stable as compared to the prior CT examinatio n. Evaluation for interval growth is limited given the CT to ultrasound comparison. Fibroids are seen within the uterine myometrium. There is no endometrial thickening evident. Endometr ial thickness is about 9.0 mm. The right ovary appears sonographically unremarkable. The left ovary is not definitely seen separate from the left hemipelvic mass. Color Doppler sonography and spectral analysis of the right ovarian wa veform demonstrates normal flow. Flow is documented to the left hemipelvic mass. Interrogation of the left iliac artery and left iliac vein was performed, demonstrating normal flow in the artery. Assess ment for venous thrombosis is limited as compressibility cannot be performed. IMPRESSION: Large left hemipelvic mass, likely stable with respect to 09/11/16 and possibly reflecting an exophy tic uterine fibroid. An adnexal mass is not excluded. Further evaluation with MRI of the pelvis is re commended on a nonemergent basis. POS: KRISTINA
[2017-06-13 12:33] LABS: ALT (SGPT) 45 U/L (8-55); AST (SGOT) 18 U/L (5-34); Albumin 3.9 g/dL (3.5-5.0); Alkaline Phosphatase 102 U/L (40-150); Anion Gap 11 mmol/L (10-20); BUN (Urea Nitrogen) 16 mg/dL (7.0-18.7); Bilirubin, Total 0.3 mg/dL (0.2-1.2); Calc. Creatinine Clearance 0 mL/min (70-130); Calcium 9.6 mg/dL (7.8-10.44); Carbon Dioxide 25 mmol/L (22-29); Chloride 106 mmol/L (98-107); Estimated GFR-MDRD 85; Globulin 3.5 g/dL (2.4-3.5); Glucose 96 mg/dL (70-105); Potassium 4.6 mmol/L (3.5-5.1); Protein, Total 7.4 g/dL (6.0-8.3); Sodium 137 mmol/L (136-145)
[2017-06-13] MEDS ORDERED: Ondansetron ODT 4 MG TAB PO PRN (14:09)
[2017-06-13 14:20] LABS: BHCG - Serum Negative (NEGATIVE); Pregs Control Background? CLEAR/WHITE (CLR/WHITE); Pregs Control Bar Appear? YES (CONTROL BAR)
--- NOTE | 2017-06-13 14:29 | HP-2 ---
TIME AND DATE OF SERVICE: 1:00 p.m. on 06/13/2017 CODE STATUS: FULL CODE. PRIMARY CARE PHYSICIAN: [facility]idi[facility]. ATTENDING: Dr. Livingston. RESIDENT: Dr. Jim Whitfield. HISTORIAN: The patient. CHIEF COMPLAINT: Worsening leg pain and swelling. HISTORY OF PRESENT ILLNESS: Ms. Nora Del Rosario is a 36-year-old female with past medical history of re cent DVT, kidney stones and fibroid uterus who presents with worsening leg pain and swelling. She wa s discharged from the hospital 6 days ago on 06/07/2017. At that hospital admission, she was diagnos ed with DVT. She was admitted on 05/30/2017. She was treated with Lovenox and bridged to warfarin. It took several days for her to reach therapeutic INR. The patient did have elevated factor VIII ac tivity. Once the patient reached therapeutic levels, she was discharged. Since then, the patient st ates that her leg is becoming larger and more painful, especially over the last 3 days. She denies a ny other symptoms at all. Denies any chest pain or shortness of breath. In the ER today, the patien t's INR was 2.9. The patient also had a recent visit to the ER approximately 3-4 days ago for one ep isode of coughing up blood streaked sputum. At that time, her INR was 3.4 and the dose of warfarin w as held that night and then decreased to 15 mg daily. Since then, the patient has not had any more b leeding episodes. PAST MEDICAL HISTORY: 1. Kidney stones. 2. Fibroid uterus. 3. Endometriosis. PAST SURGICAL HISTORY: None. ALLERGIES: No known drug allergies. MEDICATIONS: 1. Ibuprofen 800 mg p.o. q.8 hours p.r.n. 2. Adderall 30 mg p.o. b.i.d. 3. Norvasc 10 mg p.o. daily. 4. Coumadin 10 mg p.o. at bedtime. FAMILY HISTORY: Liver disease in her father. SOCIAL HISTORY: The patient denies drug and tobacco use. She does endorse drinking socially. REVIEW OF SYSTEMS: Twelve point review of systems including general, eyes, ENT, respiratory, CV, GI, , skin, musculoskeletal, neuro and psych were all reviewed and were unremarkable with the exceptio n of increased lower extremity edema, redness and pain to the left lower extremity. PHYSICAL EXAMINATION: VITAL SIGNS: Blood pressure 140/96, pulse 87, respiratory rate 20, temperature 98.5, pulse ox 100% o n room air. Current weight 77 kilograms. GENERAL: The patient is alert and oriented x4, no acute distress, well-developed, well-nourished, an d appropriately interactive. EYES: Pupils are equal, round, reactive to light and accommodation. Extraocular muscles intact. Co njunctiva within normal limits. ENT: Tympanic membranes pearly putnam without bulging or erythema. Nasal mucosa and oropharynx within normal limits. NECK: Supple, without lymphadenopathy or thyromegaly. CARDIOVASCULAR: Regular rate and rhythm. No murmurs or gallops. Radial pulses, pedal pulses equal bilaterally. RESPIRATORY: Normal effort, no retractions. LUNGS: Clear to auscultation bilaterally. SKIN: Warm and dry without, cyanosis or lesions. There is 2+ nonpitting edema, redness and some ten derness to palpation to the entire left lower extremity. ABDOMEN: Soft, nontender, bowel sounds x4, no masses or distention. EXTREMITIES: No clubbing, cyanosis, 2+ nonpitting edema in the left lower extremities. MUSCULOSKELETAL: Structure and tone within normal limits. Full range of motion. NEUROLOGIC: No foc al deficits. Sensation within normal limits. PSYCHIATRIC: Appropriate. LABORATORY DATA: White blood cell count 10.9 with 78.4% neutrophils, hemoglobin 12.5, hematocrit 38. 9, platelets 265. Sodium 137, potassium 4.6, chloride 106, bicarbonate 25, BUN 16, creatinine 0.75, glucose 96, calcium 9.6, total protein 7.4, albumin 3.9, total bilirubin 0.3, AST 18, ALT 45, alkalin e phosphatase 102. PT 32.0, PTT 50.1, INR 2.9. IMAGIN. Transvaginal ultrasound shows a large left hemipelvic mass, possible exophytic uterine fibroid. 2. Ultrasound of venous Doppler of the left lower extremity shows interval worsening progression of DVT, now involving entire left lower extremity. ASSESSMENT AND PLAN: A 36-year-old female with recent deep venous thrombosis presents with worsening lower extremity swelling and edema. 1. Deep venous thrombosis. Admit to surgery floor, it is possible that deep venous thrombosis is se condary to factor VIII activity and large fibroid uterus, possibly obstructing blood flow. Consider CV Surgery and COMMISSIONER OF OFFICIALS consult. Check CT with and without contrast of abdomen and pelvis. INR curren tly therapeutic at 2.9. Continue warfarin at this time. Continue closely monitoring vitals. 3. Hypertension. Continue home Norvasc. Continue to monitor. 4. Attention deficit hyperactivity disorder. Hold Adderall at this time. 5. Diet: Heart healthy. 6. Activity: ad aaliyah. 7. Code status: Full code. DISPOSITION AND LENGTH OF HOSPITAL STAY: 2 days. Symptomatic medications will be provided. History and physical exam as well as management were discussed with Dr. Livingston.
--- NOTE | 2017-06-13 15:59 | CT ---
CONTRAST ENHANCED CT IMAGES ABDOMEN AND PELVIS: HISTORY: Fibroid compression of the iliac vein. FINDINGS: Contrast-enhanced CT images of the abdomen and pelvis were obtained after the administration of IV co ntrast. Some areas of atelectasis or scarring present in both lower lobes of the lungs. No evidence of splen ic or hepatic abnormality is seen. The pancreas and gallbladder are unremarkable. There is marked atrophy of the left kidney with chronic changes of the left renal parenchyma. There is abnormal dilatation of the left calyces and ureter as well as left renal pelvis all the way to the distal left ureter. The right adrenal glands and kidneys are unremarkable. The left adrenal gland is unremarkable. No evidence of periaortic lymphadenopathy is seen. Numerous and extensive uterine fibroids are seen markedly enlarging the uterus. The left common ana c artery compresses the left iliac vein posteriorly. 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 This with or without the concurrent uterine fibroids may result in significant compression of the lef t iliac vein and secondary left lower extremity venous occlusion. There is extensive clot in the vis ualized left superficial and common femoral vein extending into the left external iliac vein. Theref ore, the thrombosed left lower extremity venous system may be due to May-Thurner syndrome as possibly the numerous uterine fibroids. In addition, there is chronic compression and secondary developed hy dronephrosis of the left kidney and collecting system. POS: KRISTINA
[2017-06-13] MEDS: Warfarin Sodium 5 MG TAB PO SCH (16:22)
[2017-06-13] MEDS: Acetaminophen 325 MG TAB PO PRN ×2 (16:22→22:55)
[2017-06-13 16:49] VITALS: BMI 27.4
--- NOTE | 2017-06-13 23:54 | CON ---
DATE OF CONSULTATION: 06/13/2017 HISTORY OF PRESENT ILLNESS: A pleasant 36-year-old female who was hospitalized on 05/30/2017 with a 3-week history of intermittent swelling and redness of the left lower extremity. She was found at at time to have DVT of the femoral vein with a pulmonary embolism was begun on Coumadin anticoagulati on. She was ultimately discharged on Coumadin and represented today with an INR of 2.9. She present ed due to progressive swelling and discomfort in her left leg. She was elevating a good bit at home, but not entirely with some times when she was sitting up. She was evaluated for hypercoagulability and was found to have slightly elevated factor 8 activity during her last admission. PAST MEDICAL HISTORY: Includes fibroids, kidney stones, and endometriosis. PAST SURGICAL HISTORY: Negative past surgical history. SOCIAL HISTORY: She is a nonsmoker. MEDICATIONS: Include Coumadin, Norvasc, Adderall, and ibuprofen. Her Norvasc was started during her last admission when she was noted to be hypertensive. She underwe nt evaluation with an abdominal CT scan demonstrating some thrombus in her left iliac vein as well as some edema in the adnexal region on the left with the enlarged fibroid. She also was noted to have collapsed iliac vein on the left near its junction with the vena cava, so it is not clear whether thi s is a stenotic or just collapsed due to low flow. She was also noted to have worsening of her DVT i n her leg by ultrasound compared to her prior study. PHYSICAL EXAMINATION: GENERAL: She is an alert, cooperative lady who appearing her stated age. ABDOMEN: Soft, would maybe with some mild left lower quadrant tenderness. She has no obvious venous collaterals in the scan of the abdominal wall. EXTREMITIES: She does have significant swelling and erythema of her thigh with mild tenderness to pa lpation. She also has swelling of the left valve. She has palpable pedal pulse in both feet. She h as no edema in the right leg and has some mild swelling in the left ankle region. The bulk of her ed roxana is in the thigh, although to some extent in the calf. Although, the patient is now almost 2 weeks out from her initial presentation and perhaps longer from her initial DVT. Given her age and extensive nature of the DVT, she may benefit from thrombolysis v ia the popliteal vein. She also need a left common iliac vein stent if she indeed does have May-Thur ner syndrome. She will probably require at least a temporary IVC filter if thrombolysis is undertake n. In any event, there is no physician in this facility that has done venous thrombolysis and as suc h, the patient would need to be transferred to a different facility where this is available. If she is unable to be transferred then at this time, discontinued anticoagulation and elevation of her leg to minimize symptoms.
--- NOTE | 2017-06-14 01:49 | CON ---
DATE OF ENCOUNTER: 06/13/2017 REFERRING PHYSICIAN: Jim Whitfield MD CHIEF COMPLAINT: Pelvic mass in the setting of extensive DVT and PE. HISTORY OF PRESENT ILLNESS: Patient is a 36-year-old G2, P1 female with a several-month history of a noticeable pelvic mass and a 1-month history of increasing swelling of her left lower extremity. Patient presented to the emergency room about a week ago due to these findings and was diagnosed with a pulmonary embolus and extensive DVTs within her left lower extremity and a large pelvic mass. Patient has a known history of fibroids, which she reports she has known for about 7-8 years. Patient has noticed this mass growing over the last several months in a noticeable fashion. Patient was discharged home once her anticoagulation was therapeutic and again returned today with worsening swelling and pain in her left lower extremity. Radiologic evaluation demonstrated worsening extension of her clotting in the presence of anticoagulation and now significant hydronephrosis with left cortical thinning. We are consulted to discuss the possible need of removal of this mass to alleviate her progressing DVT. Radiology has expressed significant concern about that this mass represents a malignancy given radiologic findings. CA-125 is pending currently. Thrombophilic workup is incomplete at this time , but demonstrates an elevated factor VIII activity. Upon evaluating the patient, patient denies any family history of coagulopathies or any personal history of blood clots. Patient reports that she has some baseline shortness of breath with minimal activities, since these recent events and reports intermittent constipation with a history of IBS with constipation. Patient denies any recent illness, chest pain. She denies diarrhea. Denies vomiting, denies cough. Denies any urinary problems. Swelling in her left lower extremity has become extensive all the way up to her incorporating her entire leg and she reports redness and increasing pain. Patient reports headaches with seasonal changes. PAST MEDICAL HISTORY: Significant for endometriosis diagnosed many many years ago, uterine fibroids diagnosed 7-8 years ago, history of kidney stones, history of IBS with constipation with a negative colonoscopy in 2011, ADHD. PAST SURGICAL HISTORY: None. GYNECOLOGIC HISTORY: Patient reports all of her TECTONOPHYSICIST screening has been negative. Her last Pap smear was about 3 years ago. Pt reports normal monthly periods that start around 6th of the month ALLERGIES: No known drug allergies. MEDICATIONS: Recently since being diagnosed with this PE and DVT. Patient has been placed on ibuprofen 800 mg to be taken every 6 hours as needed for pain and Norvasc 10 mg for elevated blood pressures, and Coumadin 10 mg for anticoagulation. She is on Adderall 30 mg p.o. b.i.d. SOCIAL HISTORY: She denies drug, alcohol, or tobacco use. 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 REVIEW OF SYSTEMS: Per HPI. PHYSICAL EXAMINATION: VITAL SIGNS: Blood pressure 142/82, temperature 97.8, pulse of 103, respiratory rate of 16, satting 100% on room air. GENERAL: She appears to be in no acute distress. She is alert and oriented, cooperative, and pleasant to interact with. HEENT: Normocephalic, atraumatic. LUNGS: Clear to auscultation bilaterally. HEART: At the time of exam, she has a regular rate and rhythm. ABDOMEN: Soft with a palpable mass on left lower quadrant which is very tender to palpation. She has extensive edema in her left lower extremity with erythema up to her groin. EXTREMITIES: Left leg appears to be about 1-1/2 times size of her right and erythematous : Has been deferred at this time. LABORATORY DATA: CBC: White count 10.9, hemoglobin 12.5, hematocrit 38.9, platelets of 265,000. PT is 32. INR 2.9, PTT is 50.1. Chemistries: Sodium 137, potassium 4.6, chloride 106, bicarbonate 25, BUN 16, creatinine 0.76, glucose 96, calcium 9.6. AST 18, ALT 45, and she has a negative test. Testing from her previous admission shows cardiolipin antibodies testing is negative. Von Willebrand factor and activity are within normal limits. Factor 8 activity is elevated at 229%. Functional antithrombin III is within normal limits. Protein S activity is within normal limits. Protein C is within normal limits. CT report describes marked atrophy of the left kidney and chronic changes of the left renal parenchyma and abnormal dilation of left calyces and ureter as well as the left renal pelvis. No evidence of periaortic lymphadenopathy. The left common iliac artery compresses the left iliac vein posteriorly consistent with May-Thurner syndrome and has extensive clots visualized in the left superficial and common femoral veins extending into the left external iliac vein. The uterus is enlarged with multiple extensive uterine fibroids again with a reported alteration to the draft dictation concerns for malignancy given the overall nature and findings with possible extension into the bladder as reported over the phone. ASSESSMENT AND PLAN: Patient is a 36-year-old G2, P1 female with a recent diagnosis of pulmonary embolism and extensive deep venous thrombosis, right hydronephrosis with cortical thinning and large pelvic mass with a known history of fibroids and now concerns per radiologic findings for malignancy. Given the setting of this extensive coagulopathy and radiologic concerns for malignancy, this patient would best be suited by evaluation from Gynecology Oncology. CA-125 has been ordered and is pending. I have spoken with Dr. Dorina Vasquez of the [facility], who has gladly accepted transfer. I have discussed her with the primary team, Dr. Dorina Vasquez would be happy to accept the transfer to her hospital. Her number is [phone], work [phone], fax [phone]. transfer center at [facility] [phone] The primary team have agreed to facilitate this transfer out. [facility]
[2017-06-14 04:24] LABS: #Eosinphils 0.1 thou/uL (0.0-0.7); #Lymphocytes 1.3 thou/uL (1.20-3.40); #Monocytes 0.8 thou/uL (0.11-0.59); #Neutrophils 9.1 thou/uL (1.40-6.50); %Basophils 0.4 % (0.0-1.0); %Eosinophils 1.2 % (0.0-10.0); %Lymphocytes 11.1 % (21.0-51.0); %Monocytes 7.4 % (0.0-10.0); %Neutrophils 79.9 % (42.0-75.0); Hemoglobin 11.4 g/dL (12.0-16.0); Mean Corpuscular HGB CONC 33.1 g/dL (32.0-36.0); Mean Corpuscular Hemoglobin 29.7 pg (27.0-31.0); Mean Corpuscular Volume 89.6 fl (81.0-99.0); Platelet Count 282 thou/uL (130-400); RBC Distribution Width 11.9 % (11.5-14.5); Red Blood Cell (RBC) Count 3.86 mill/uL (4.20-5.40); White Blood Cell (WBC) Count 11.4 thou/uL (4.8-10.8)
[2017-06-14 04:34] LABS: Anion Gap 12 mmol/L (10-20); BUN (Urea Nitrogen) 14 mg/dL (7.0-18.7); Calc. Creatinine Clearance 122 mL/min (70-130); Calcium 9.2 mg/dL (7.8-10.44); Carbon Dioxide 23 mmol/L (22-29); Chloride 103 mmol/L (98-107); Estimated GFR-MDRD 85; Glucose 106 mg/dL (70-105); Sodium 134 mmol/L (136-145)
[2017-06-14 04:59] LABS: INR-International Normal Ratio 3.8; Prothrombin Time 39.6 SEC (12.0-14.7)
[2017-06-14] MEDS: Acetaminophen 325 MG TAB PO PRN ×4 (05:27→20:51)
--- NOTE | 2017-06-14 06:24 | PDOC.FM ---
- Subjective Subjective: Mrs. Del Rosario is seen at bedside this morning. She states that there were no acute events overnight. She has continued to have left leg pain, but states that pain is controlled with tylenol and leg elevation. She denies fever, chest pain, dyspnea, n/v/d. - Objective MAR Reviewed: Yes Vital Signs & Weight: Vital Signs (12 hours) Temp Pulse Resp BP Pulse Ox 06/14/17 04:48 97.9 F 87 16 120/79 100 06/14/17 04:45 97.9 F 87 16 120/79 100 06/14/17 00:34 98.1 F 97 17 127/76 98 06/13/17 21:10 98.0 F 99 16 151/88 H 99 06/13/17 20:02 98.0 F 99 16 I&O: 06/12/17 06/13/17 06/14/17 06:59 06:59 06:59 Intake Total 1760 Balance 1760 Result Diagrams: 06/14/17 03:54 06/14/17 03:54 <Jim Whitfeild - Last Filed: 06/14/17 08:21> - Objective Vital Signs & Weight: Vital Signs (12 hours) Temp Pulse Resp BP Pulse Ox 06/14/17 07:57 98.2 F 102 H 16 130/81 100 06/14/17 04:48 97.9 F 87 16 120/79 100 06/14/17 04:45 97.9 F 87 16 120/79 100 06/14/17 00:34 98.1 F 97 17 127/76 98 I&O: 06/13/17 06/14/17 06/15/17 06:59 06:59 06:59 Intake Total 1760 Balance 1760 Result Diagrams: 06/14/17 03:54 06/14/17 03:54 <Ketan Harper - Last Filed: 06/14/17 11:20> Phys Exam - Physical Examination Constitutional: NAD HEENT: moist MMs, sclera anicteric Neck: no JVD, supple, full ROM Respiratory: no wheezing, no rales, no rhonchi, clear to auscultation bilateral Cardiovascular: RRR, no significant murmur Gastrointestinal: soft, non-tender, no distention Musculoskeletal: pulses present erythema and 2+ nonpitting edema in L LE Neurological: non-focal, normal sensation, moves all 4 limbs Psychiatric: normal affect, A&O x 3 <Jim Whitfield - Last Filed: 06/14/17 08:21> Dx/Plan (1) DVT (deep venous thrombosis) Code(s): I82.409 - ACUTE EMBOLISM AND THOMBOS UNSP DEEP VN UNSP LOWER EXTREMITY Status: Acute (2) HTN (hypertension) Code(s): I10 - ESSENTIAL (PRIMARY) HYPERTENSION Status: Acute (3) Pulmonary embolism Code(s): I26.99 - OTHER PULMONARY EMBOLISM WITHOUT ACUTE COR PULMONALE Status : Acute - Plan Plan: 1) Extensive DVT: in setting of worsening DVT and CT findings concerning for malignancy -Coagulopathy work-up still pending, at this time Factor VIII activity elevated -Cont warfarin at this time, INR 2.9 yesterday, 3.8 this morning, will decrease dose -CA-125 pending -Dr. Dorina Vasquez, [facility], has accepted patient -plan to transfer patient to her hospital 2) HTN: Cont home meds and monitoring BPs <Jim Whitfield - Last Filed: 06/14/17 08:21> Attending Addendum - Attending Addendum I personally evaluated the patient and discussed the management with Dr. Whitfield. I agree with the History, Examination, Assessment and Plan documented above with any addition or exceptions noted below. Patient stable at this time. Her INR is increased and will hold warfarin this evening. She is keeping leg elevated. We are in the process of attempting transfer to higher level of care due to her need for venous thrombolysis and extensive CV surgery involvement in the process of her mass removal. Awaiting to hear from transfer center regarding that transfer. <Ketan Harper R - Last Filed: 06/14/17 11:20>
[2017-06-15] MEDS: Acetaminophen 325 MG TAB PO PRN ×6 (00:33→23:22)
[2017-06-15 04:11] LABS: INR-International Normal Ratio 3.7; Prothrombin Time 38.1 SEC (12.0-14.7)
[2017-06-15] MEDS: Amlodipine 10 MG TAB PO SCH (08:31)
--- NOTE | 2017-06-15 11:52 | PDOC.FM ---
- Subjective Subjective: Patient reports that swelling in L leg has worsened. She is having a lot of leg pain. She reports some L sided abdominal pain. She denies any N/V, chest pain, SOB. - Objective MAR Reviewed: Yes Vital Signs & Weight: Vital Signs (12 hours) Temp Pulse Resp BP Pulse Ox 06/15/17 08:30 97.8 F 92 18 127/81 100 06/15/17 08:00 97.8 F 92 18 06/15/17 04:11 98.0 F 107 H 15 115/72 100 I&O: 06/14/17 06/15/17 06/16/17 06:59 06:59 06:59 Intake Total 1760 800 Balance 1760 800 Result Diagrams: 06/14/17 03:54 06/14/17 03:54 <Cassandra Mckeon - Last Filed: 06/15/17 11:50> - Objective Vital Signs & Weight: Vital Signs (12 hours) Temp Pulse Resp BP Pulse Ox 06/15/17 08:30 97.8 F 92 18 127/81 100 06/15/17 08:00 97.8 F 92 18 06/15/17 04:11 98.0 F 107 H 15 115/72 100 I&O: 06/14/17 06/15/17 06/16/17 06:59 06:59 06:59 Intake Total 1760 800 Balance 1760 800 Result Diagrams: 06/14/17 03:54 06/14/17 03:54 <Damaso Gonzalez - Last Filed: 06/15/17 12:09> Phys Exam - Physical Examination Constitutional: NAD HEENT: moist MMs Respiratory: no wheezing, no rales, no rhonchi, clear to auscultation bilateral Cardiovascular: RRR, no significant murmur, no rub Gastrointestinal: soft, no distention, positive bowel sounds LLQ abdominal tenderness, no rebound or guarding, pelvic mass Musculoskeletal: edema present (LLE edema and erythema from foot to upper thigh with tenderness) Neurological: non-focal, moves all 4 limbs Psychiatric: normal affect, A&O x 3 <Cassandra Mckeon - Last Filed: 06/15/17 11:50> Dx/Plan (1) DVT (deep venous thrombosis) Code(s): I82.409 - ACUTE EMBOLISM AND THOMBOS UNSP DEEP VN UNSP LOWER EXTREMITY Status: Acute QualifierTitle: DVT location: lower extremity Affected thrombotic vein of extremity: unspecified vein of extremity Chronicity: acute Laterality: left Qualified Code(s): I82.402 - Acute embolism and thrombosis of unspecified deep veins of left lower extremity Plan: Significant LLE DVT that is extending on warfarin, INR 3.7. Concern for malignancy with uterine mass. Patient will require thrombolysis due to the extent of the DVT and may need IVC filter placement prior to this. -Will consult Heme/onc for recs regarding best anticoagulation as DVT is worsening on Warfarin -CV surg has been consulted, appreciate recs -Patient will need to be transferred for higher level of care, but there has been difficulty finding a place to accept her at this time. (2) Uterine mass Code(s): N85.9 - NONINFLAMMATORY DISORDER OF UTERUS, UNSPECIFIED Status: Acute Plan: Patient has uterine mass in the setting of elevated CA 125 to 221.3. -Hodnett with [employer] has been consulted, appreciate recs -Patient will likely need to be transferred for paper colorer/onc care to have this worked up after the DVT has been taken care of. (3) HTN (hypertension) Code(s): I10 - ESSENTIAL (PRIMARY) HYPERTENSION Status: Acute QualifierTitle: Hypertension type: essential hypertension Qualified Code( s): I10 - Essential (primary) hypertension Plan: Cont home meds <Cassandra Mckeon - Last Filed: 06/15/17 11:50> Attending Addendum - Attending Addendum I personally evaluated the patient and discussed the management with Dr. Mckeon. I agree with and repeated the History, Examination, Assessment and Plan documented above with any addition or exceptions noted below. Very difficult case. Miguel declined transfer. She has had progression of the clot despite coumadin. We will consult hematology to discuss additional options while inpatient. Continue to try to escalate care. <Damaso Gonzalez - Last Filed: 06/15/17 12:09>
[2017-06-15] MEDS: Warfarin Sodium 5 MG TAB PO SCH (17:50)
--- NOTE | 2017-06-15 21:00 | PRG ---
DATE OF SERVICE: 06/15/2017 SUBJECTIVE: Following along the patient is gynecology presales consultant with the [facility]. Und erstand that transfer is being complicated by financial issues with [facility]. Dr. Dorina Vasquez has agreed to accept this patient from a medical care standpoint. Suspect that patient's rapid r egrowing pelvic mass, along with CA-125 of greater than 200, along with the development of venous thr ombus is indicative of malignancy and the patient should be cared for by a gynecologic oncologist. U nderstand it is unlikely that progress will be made on Saturday or Saturday in getting the patient chew sferred and hope that the [facility] Holiday does not interfere with progress in this manner on Saturday as well. Agree with continued anticoagulation and would defer to vascular presales consultant as to whether or not the patient needs an IVC filter. We would note that the patient likely will have pro longed period of hypercoagulability associated with likely malignancy.
[2017-06-16] MEDS: Acetaminophen 325 MG TAB PO PRN ×5 (04:01→21:55)
[2017-06-16 04:11] LABS: INR-International Normal Ratio 2.4; Prothrombin Time 27.4 SEC (12.0-14.7)
--- NOTE | 2017-06-16 08:00 | PDOC.FM ---
- Subjective Subjective: Patient reports that her leg pain in her left leg has worsened. She is still having abdominal pain as well, but denies N/V, diarrhea, constipation, fever. She is tolerating PO well. She is having no problems urinating. She has kept her left leg elevated. - Objective MAR Reviewed: Yes Vital Signs & Weight: Vital Signs (12 hours) Temp Pulse Resp BP Pulse Ox 06/16/17 04:00 97.9 F 98 18 133/88 98 06/16/17 00:38 98.2 F 98 18 120/83 99 06/15/17 21:10 98.2 F 101 H 18 144/89 H 98 06/15/17 20:00 98.2 F 98 18 98 I&O: 06/15/17 06/16/17 06/17/17 06:59 06:59 06:59 Intake Total 800 480 Balance 800 480 Result Diagrams: 06/14/17 03:54 06/14/17 03:54 <Cassandra Mckeon - Last Filed: 06/16/17 07:58> - Objective Vital Signs & Weight: Vital Signs (12 hours) Temp Pulse Resp BP Pulse Ox 06/16/17 11:50 98.1 F 101 H 20 121/77 99 06/16/17 07:45 97.9 F 92 20 121/74 96 06/16/17 04:00 97.9 F 98 18 133/88 98 I&O: 06/15/17 06/16/17 06/17/17 06:59 06:59 06:59 Intake Total 800 480 Balance 800 480 Result Diagrams: 06/14/17 03:54 06/14/17 03:54 <Damaso Gonzalez - Last Filed: 06/16/17 15:12> Phys Exam - Physical Examination Constitutional: NAD HEENT: moist MMs Respiratory: no wheezing, no rales, no rhonchi, clear to auscultation bilateral Cardiovascular: RRR, no significant murmur, no rub Gastrointestinal: soft, non-tender, no distention, positive bowel sounds Musculoskeletal: edema present (LLE, significant edema, worsened from prior days , compression stocking in place) erythema and warmth in LLE, elevated LLE on several pillows Neurological: non-focal, moves all 4 limbs Psychiatric: normal affect, A&O x 3 <Cassandra Mckeon - Last Filed: 06/16/17 07:58> Dx/Plan (1) DVT (deep venous thrombosis) Code(s): I82.409 - ACUTE EMBOLISM AND THOMBOS UNSP DEEP VN UNSP LOWER EXTREMITY Status: Acute QualifierTitle: DVT location: lower extremity Affected thrombotic vein of extremity: unspecified vein of extremity Chronicity: acute Laterality: left Qualified Code(s): I82.402 - Acute embolism and thrombosis of unspecified deep veins of left lower extremity Plan: Significant LLE DVT that is extending on warfarin, INR 2.4. Concern for malignancy with uterine mass and elevated CA 125 Patient will require thrombolysis due to the extent of the DVT and may need IVC filter placement prior to this. -Heme/onc consulted for recs regarding best anticoagulation as DVT is worsening on Warfarin, appreciate recs -CV surg has been consulted, appreciate recs -Patient will need to be transferred for higher level of care, but there has been difficulty finding a place to accept her at this time - there have been about 10+ facilities that have been contacted who have rejected her due to either their facility being full or her funding status. (2) Uterine mass Code(s): N85.9 - NONINFLAMMATORY DISORDER OF UTERUS, UNSPECIFIED Status: Acute Plan: Patient has uterine mass in the setting of elevated CA 125 to 221.3. -[place] with [facility] has been consulted, appreciate recs -Patient will likely need to be transferred for lead man over all dies in pattern shop/onc care to have this worked up after the DVT has been taken care of. (3) HTN (hypertension) Code(s): I10 - ESSENTIAL (PRIMARY) HYPERTENSION Status: Acute QualifierTitle: Hypertension type: essential hypertension Qualified Code( s): I10 - Essential (primary) hypertension Plan: Cont home meds <Cassandra Mckeon - Last Filed: 06/16/17 07:58> Attending Addendum - Attending Addendum I personally evaluated the patient and discussed the management with Dr. Mckeon. I agree with and repeated the History, Examination, Assessment and Plan documented above with any addition or exceptions noted below. Symptomatically stable. Exam relatively unchanged. Much time spent with the transfer center calling hospitals. I spoke with the CV fellow at [facility] in [place] last night and their transfer center and he stated the procedure would require ICU stay and they currently have no beds, as well as likely no gynecology services. Await hematology consultation. Appreciate their recommendations concerning anticoagulation and IVC filter placement. <Damaso Gonzalez - Last Filed: 06/16/17 15:12>
[2017-06-16] MEDS: Amlodipine 10 MG TAB PO SCH (09:08)
--- NOTE | 2017-06-16 15:16 | CON ---
DATE OF CONSULTATION: 06/16/2017 REASON FOR CONSULTATION: Deep vein thrombosis with pulmonary embolism. HISTORY: This is a 36 years old female with known history of uterine fibroid. A month ago , she started to have swelling in the left lower extremity. The patient was admitted on 05/30/2017 w ith a left lower extremity DVT and pulmonary embolism. She was started on Lovenox and switched over to warfarin. She was discharged on 06/07/2017, and was readmitted with increasing pain and possibly swelling in the left lower extremity. In the emergency room, her INR was 2.9. Doppler study on 06/03 showed progression of DVT, now involving the entire left lower extremity. Transvaginal ultrasound showed large left hemipelvic mass, likely stable compared to CT scan of 09/11. CT scan of abdomen and pelvis showed extensive uterine fibroid. There was compression of lef t iliac vein posteriorly with left common iliac artery compatible with May-Thurner syndrome, extensiv e blood clots were also noted. [facility] have been consulted. Recommendatio n was made for thrombolysis, which cannot be done at [facility]. Dr. Langford discussed the case with Dr. Dorina Vasquez, who agreed to see the patient. The Family Practice residents tried to c all several hospitals, trying to transfer her to a facility, which can perform thrombolysis. The tra nsfer has not gone through either because of the hospital being full or, a more likely scenario could be because the patient is uninsured. The patient had thrombophilia panel performed, which did not s how any hypercoagulable state. Her factor VIII level is elevated, but an acute phase reactant and do es not really mean very much. PAST MEDICAL HISTORY: Uterine fibroids, endometriosis, and kidney stone. OUTPATIENT MEDICATIONS: Ibuprofen, Adderall 30 mg p.o. b.i.d., Norvasc 10 mg p.o. daily. PERSONAL FAMILY AND SOCIAL HISTORY: The patient does not have any history of bleeding or coagulation issues in her family. She does not smoke and drinks socially. She is a dental personal injury legal assistant. She has an 18-year-old daughter. REVIEW OF SYSTEMS: The patient denies chest pain. She admits of left lower extremity swelling and p ain. PHYSICAL EXAMINATION: GENERAL: The patient appears appropriate for her age and is alert and oriented. VITAL SIGNS: Height 5 feet 6 inches, weight 170 pounds, temperature 97.9, pulse 92, respirations 2 0, blood pressure 121/74. HEENT: Unremarkable. LYMPHATICS: There is no peripheral lymphadenopathy. CHEST: Clear to percussion and auscultation. HEART: Regular rhythm. S1 and S2. ABDOMEN: Soft, without hepatosplenomegaly. EXTREMITIES: Gross swelling of the left lower extremity. There is tenderness over the thigh and jace f veins. LABORATORY DATA: CBC shows WBC of 11,400 with hemoglobin 11.4 grams, and platelet count of 282,000. Differential shows 79.9% neutrophils and 11.1% lymphocytes. Chemistry profile is essentially normal . CA-125 is elevated at 221. Chest x-ray is normal. ASSESSMENT AND RECOMMENDATIONS: This patient's thromboembolic event is likely related to mechanical factors, namely May-Thurner syndrome with possible contribution of the large uterine mass. She does have moderate elevation of CA-125, but this can also be seen in patients with fibroid. As far as her thromboembolic issue is concerned, she needs mechanical intervention such as thrombolysis or thrombe ctomy and might require stenting of the common iliac vein, which is compressed by the common iliac ar jeff as part of May-Thurner syndrome. Unfortunately, these procedures cannot be done at [facility] and none of the other hospitals that were apparently contacted have accepted the patient for transfer. I will talk to radiologist to see if MRI of the pelvis can differentiate between fibroid v ersus a malignancy. One option will be to switch her over to Lovenox. Sometimes we do that if there is a progression of thrombosis while the patient is on adequate doses of Coumadin. The potential pr oblem with Lovenox would be that reversal is not as prompt as with Coumadin in case surgical interven tion is to take place. Thanks very much for asking me to participate in this patient's care.
[2017-06-16] MEDS: Warfarin Sodium 5 MG TAB PO SCH (17:47)
[2017-06-17] MEDS: Acetaminophen 325 MG TAB PO PRN ×4 (03:45→19:00)
[2017-06-17 04:23] LABS: INR-International Normal Ratio 2.9; Prothrombin Time 31.7 SEC (12.0-14.7)
[2017-06-17] MEDS: Amlodipine 10 MG TAB PO SCH (08:35)
--- NOTE | 2017-06-17 12:00 | MRI ---
MRI OF THE PELVIS WITHOUT AND WITH CONTRAST: Date: 06/17/17 COMPARISON: CT abdomen/pelvis dated 06/13/17. HISTORY: Pelvic mass. Elevated CA125. TECHNIQUE: Multiplanar, multisequence MR images were obtained of the pelvis without and with IV contrast. FINDINGS: There is a large mass in the pelvis. This mass is predominantly in the left adnexal region, but also appears to encase the uterus. This mass has areas of high T1 signal and areas of high T2 signal, sepa rate from the areas of high T1 signal. This likely represents cystic components of the mass and areas where there are hemorrhage within the mass. This mass is infiltrative and extends towards the left p elvic side wall. This mass measures approximately 16.0 x 5.7 x 12.8 cm in size. There is no evidence of fat suppression within the mass to suggest a teratoma. There are multiple foci of high T2 signal in the cervical region which may represent nabothian cysts. No free fluid is seen in the pelvis. A structure along the posterior right aspect of the uterus may represent the patient's normal right ovary. A normal left ovary cannot be definitely seen. There is enlargement of the left ureter, likely secondary to compression on the left ureter by this m ass. No enlarged pelvic lymph nodes are identified. No suspicious osseous lesions are identified in t he visualized bones. IMPRESSION: There is a large mass in the pelvis. The epicenter of this mass appears to be to the left of the uter us with displacement of the uterus to the right. This is an infiltrative mass and appears to extend t owards the left pelvic side wall and involve the uterus. There is also compression on the distal uret er by the mass causing left-sided hydronephrosis. This mass likely is of ovarian origin. Less likely, this could be a uterine mass. POS: KRISTINA
--- NOTE | 2017-06-17 12:43 | PDOC.FM ---
- Subjective Subjective: Patient is about the same overnight. Pain is about the same in her left leg, tolerated with tylenol. No N/V/D/C. Tolerating PO fluid and food. - Objective MAR Reviewed: Yes Vital Signs & Weight: Vital Signs (12 hours) Temp Pulse Resp BP Pulse Ox 06/17/17 11:00 98.3 F 98 20 140/84 99 06/17/17 07:35 98.5 F 95 20 109/72 99 06/17/17 04:23 98.2 F 95 18 125/90 99 I&O: 06/16/17 06/17/17 06/18/17 06:59 06:59 06:59 Intake Total 480 840 Balance 480 840 Result Diagrams: 06/14/17 03:54 06/14/17 03:54 <Ayad Ferreira - Last Filed: 06/17/17 12:39> - Objective Vital Signs & Weight: Vital Signs (12 hours) Temp Pulse Resp BP Pulse Ox 06/17/17 11:00 98.3 F 98 20 140/84 99 06/17/17 08:00 98.3 F 98 20 06/17/17 07:35 98.5 F 95 20 109/72 99 06/17/17 04:23 98.2 F 95 18 125/90 99 I&O: 06/16/17 06/17/17 06/18/17 06:59 06:59 06:59 Intake Total 480 840 Balance 480 840 Result Diagrams: 06/14/17 03:54 06/14/17 03:54 <Petra Espino - Last Filed: 06/17/17 15:45> Phys Exam - Physical Examination Constitutional: NAD HEENT: PERRLA, oral pharynx no lesions Respiratory: no wheezing, clear to auscultation bilateral Cardiovascular: RRR, no significant murmur Gastrointestinal: soft, non-tender Musculoskeletal: pulses present LLE significant swelling of thigh and calf, compression stocking in place left leg elevated Neurological: normal sensation, moves all 4 limbs Psychiatric: normal affect, A&O x 3 <Ayad Ferreira - Last Filed: 06/17/17 12:39> Dx/Plan (1) DVT (deep venous thrombosis) Code(s): I82.409 - ACUTE EMBOLISM AND THOMBOS UNSP DEEP VN UNSP LOWER EXTREMITY Status: Acute QualifierTitle: DVT location: lower extremity Affected thrombotic vein of extremity: unspecified vein of extremity Chronicity: acute Laterality: left Qualified Code(s): I82.402 - Acute embolism and thrombosis of unspecified deep veins of left lower extremity Plan: will work with CM and CV surg to find placement for patient Will continue with lovenox at this time Recs from CV surg and Heme/Onc greatly appreciated (2) Uterine mass Code(s): N85.9 - NONINFLAMMATORY DISORDER OF UTERUS, UNSPECIFIED Status: Acute Plan: MRI today per Heme/Onc Heme/Onc and Product Architect recs greatly appreciated (3) HTN (hypertension) Code(s): I10 - ESSENTIAL (PRIMARY) HYPERTENSION Status: Acute QualifierTitle: Hypertension type: essential hypertension Qualified Code( s): I10 - Essential (primary) hypertension <Ayad Ferreira - Last Filed: 06/17/17 12:39> Attending Addendum - Attending Addendum I personally evaluated the patient and discussed the management with Dr. Ferreira I agree with the History, Examination, Assessment and Plan documented above with any addition or exceptions noted below- Patient without complaints except she has noted some increased swelling of her left leg today. Denies any CP or SOB, N/V. Afebrile VSS. A/P: 1) Left DVT extension - INR in therapeutic range; continue coumadin; arrangement made this afternoon for transfer for thrombolysis and IVC filter. 2) May-Thurner syndrome- compression of iliac vein by pelvic mass- continue anticoagulation. 3) Pelvic mass- MRI today favoring ovarian origin of mass but not conclusive; plan for Product Architect Onc consult in future. <Petra Espino - Last Filed: 06/17/17 15:45>
--- NOTE | 2017-06-17 13:49 | PDOC.EVN ---
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 Left hydro noted as well due to mass compression. Also with DVT progression. I have discussed case with Dr Livingston. Patient will need Ultrasound Specialist Onc follow up. Currently on anticoagulation. Hematology Oncology has recommended localized TPA to help lyze leg clot. Disposition needs case management assistance.
[2017-06-17 16:00] VITALS: BP 126/81; TEMP 98.2
[2017-06-17] MEDS: Warfarin Sodium 5 MG TAB PO SCH (17:20)
--- NOTE | 2017-06-18 00:45 | DIS-2 ---
DATE OF ADMISSION: 06/13/2017 DATE OF DISCHARGE: 06/17/2017 RESIDENT: Ayad Ferreira D.O. ADMITTING ATTENDING: Rasta Livingston M.D. DISCHARGE ATTENDING: Petra Espino M.D. CONSULTATIONS: Dr. Weir of Cardiovascular Surgery, Dr. Lin of Hem/Onc, Dr. Langford of OB/Gynec ology. PROCEDURES: Vascular ultrasound on 06/13/2017 showing interval worsening progression of the deep yasmine ous thrombosis compared to 06/10/2017 ultrasound, now involves the entire left lower extremity. Pelvic ultrasound, large left giuliana-pelvic mass, possibly reflecting an exophytic uterine fibroid; adn exal mass is not excluded. Abdomen and pelvis CT on 06/13/2017 showing numerous and extensive uterin e fibroids markedly enlarging the uterus with left common iliac artery compressing the left iliac vei n posteriorly, compatible with May-Thurner syndrome; there is extensive clot visualized in the left s uperficial and common femoral vein extending into the left external iliac vein; thrombosed left lower extremity venous system may be due to May-Thurner syndrome as possibly the numerous uterine fibroids ; hydronephrosis of the left kidney collecting system also visualized. Pelvis MRI on 06/17/2017 showing a large mass in the pelvis appearing to be left of the uterus being an infiltrative mass appears to extend towards the left pelvic sidewall and involving the uterus; com pression of the distal ureter by mass causing left-sided hydronephrosis; mass likely is of ovarian or igin, less likely uterine mass. PRIMARY DIAGNOSES: 1. Left lower extremity deep venous thrombosis, likely secondary to malignant stage. 2. Uterine mass suspicious for malignancy. SECONDARY DIAGNOSIS: Hypertension. DISCHARGE MEDICATIONS: 1. Coumadin 12.5 mg p.o. daily. 2. Zofran 4 mg p.o. q.6 h. p.r.n. nausea, vomiting. 3. Tylenol 650 mg p.o. q.4 hours p.r.n. 4. Amlodipine 10 mg p.o. daily. DISCONTINUED MEDICATIONS: None. HISTORY OF PRESENT ILLNESS AND HOSPITAL COURSE: Ms. Del Rosario is a pleasant 36-year-old female with no significant past medical history presenting with leg swelling. The patient had similar hospitalizati on approximately 3 weeks ago for DVT and PE and was placed on Coumadin. On the time of admission for current hospitalization, her INR was 2.9. Upon initial evaluation, the patient was found to have a DVT covering her entire left iliac vein and was continued on anticoagulation thrombosis prophylaxis. Upon investigation by CT Surgery, the patient was found to be in need of thrombolysis; however, we d o not provide such services at this hospital. Therefore, the patient was sought to be transferred to another center where such services could be provided. However, complications arose because the francois ent is uninsured. Additionally, the patient was found to have abdominal mass and was found to have a mass that was diff icult to determine whether it was uterine fibroids or extrauterine such as ovarian mass. CT, MRI, tr ansvaginal ultrasound were all performed, the last of which being the MRI showed to be suspicious for ovarian mass. Gynecology and Hem/Onc were consulted with recommendations to have the patient evalua isaac in another setting. It is worth noting the patient's CA-125 is 221. There was also suspicion th at the patient had May-Thurner syndrome on top of DVT in left lower extremity. During hospitalization, the patient's vital signs were grossly normal, and was afebrile. Highest rat e was 103, blood pressure was never greater than 160/90. During patient's 4-day hospital stay, the patient was able to ambulate to the bathroom, however, repo rts having pain in her leg by the time that she would return to her bed. The patient did have progre ssively enlarging left leg and required ISAAC hose to help with swelling. The patient also had to keep her left leg elevated to minimize pain and swelling. DISPOSITION: Guarded. DISCHARGE INSTRUCTIONS: 1. Location: The patient will be transferred to [facility]. 2. Diet: As tolerated. 3. Activity: As tolerated. 4. Follow up pending evaluation at [facility].
== END 2017-06-17 20:43 | disposition short-term general hospital (02) | DRG 175 ==
LOC: ERS 09:47 → SURG A 12:46 → OBSVTOIN 12:46
PROVIDERS: ADMIT Student in an Organized Health Care Education/Training Program; ATTEND Student in an Organized Health Care Education/Training Program
DX: I26.99 Other pulmonary embolism without acute cor pulmonale (principal); D66 Hereditary factor VIII deficiency; I82.422 Acute embolism and thrombosis of left iliac vein; N13.30 Unspecified hydronephrosis; N85.9 Noninflammatory disorder of uterus, unspecified; I10 Essential (primary) hypertension; F90.9 Attention-deficit hyperactivity disorder, unspecified type; Z79.01 Long term (current) use of anticoagulants; K58.1 Irritable bowel syndrome with constipation; R97.1 Elevated cancer antigen 125 [CA 125]; R19.00 Intra-abdominal and pelvic swelling, mass and lump, unspecified site; F41.9 Anxiety disorder, unspecified
CPT/HCPCS: 36415; 72197; 74177; 76856; 80048; 80053; 84703; 85025; 85610; 85730; 86304; 93976

== ENCOUNTER 2017-12-02 07:59 | Outpatient (CLI) | payer OTHER ==
[2017-12-02] MEDS ORDERED: ISOVUE-370 76%-LOCM 1 ML ONE (13:46)
== END 2017-12-02 08:00 | disposition home or self-care (01) ==
LOC: BICCT 07:59
PROVIDERS: ATTEND Family Medicine
DX: C54.1 Malignant neoplasm of endometrium (principal); R91.8 Other nonspecific abnormal finding of lung field; M89.9 Disorder of bone, unspecified; N85.8 Other specified noninflammatory disorders of uterus; N13.30 Unspecified hydronephrosis; N13.4 Hydroureter
CPT/HCPCS: 74177

== ENCOUNTER 2018-06-20 12:20 | Outpatient (CLI) | payer OTHER ==
--- NOTE | 2018-06-20 14:03 | ULT ---
ULTRASOUND WITH DOPPLER DUPLEX VENOUS LOWER EXTREMITY LEFT: Date: 06/20/18 Time: 1253 hours HISTORY: 37-year-old female with medial thigh edema. Follow-up of previous deep venous thrombosis. Status post switch of anticoagulation therapy. COMPARISON: 06/13/17. TECHNIQUE: Color flow Doppler, spectral waveform analysis of pulsed Doppler, and putnam-scale imaging with tete mariah and augmentation, were used to evaluate the left common femoral, femoral, popliteal, posterior t ibial, and superficial femoral, veins; and the proximal portions of the profunda femoral and greater saphenous, veins. FINDINGS: The previously demonstrated extensive deep venous thrombosis involving the entire left lower extremit y has resolved, except for residual small thrombus material partially filling the nondilated left com mon femoral vein. There is blood flow in the left common femoral vein and throughout all of the other veins. The veins are no longer distended. IMPRESSION: Small amount of partial, nonoccluding thrombus in the left common femoral vein. Uncertain whether thi s is residual component of old clot, or is acute clot. Old is slightly favored. Recommend follow up . ZECHARIAH Damico POS: KRISTINA
== END 2018-06-20 12:21 | disposition home or self-care (01) ==
LOC: BICULT 12:20
DX: Z09 Encounter for follow-up examination after completed treatment for conditions other than malignant neoplasm (principal); Z86.718 Personal history of other venous thrombosis and embolism; I82.412 Acute embolism and thrombosis of left femoral vein

== ENCOUNTER 2018-10-06 13:54 | Outpatient (CLI) | payer OTHER ==
--- NOTE | 2018-10-06 15:00 | ULT ---
RIGHT LOWER EXTREMITY VENOUS DUPLEX ULTRASOUND INCLUDING COLOR AND SPECTRAL DOPPLER IMAGING: Date: 10/06/18 HISTORY: Right lower extremity swelling and edema and redness. TECHNIQUE: Exam performed from groin to ankle including visualized greater saphenous, common femoral, superficia l femoral, profunda femoral, popliteal, trifurcation, and posterior tibial vein regions. FINDINGS: There is phasic flow with normal compressibility and normal augmentation. No intraluminal thrombus. IMPRESSION: No evidence for deep venous thrombosis. POS: C
== END 2018-10-06 13:55 | disposition home or self-care (01) ==
LOC: BICULT 13:54
DX: C55 Malignant neoplasm of uterus, part unspecified (principal)

== ENCOUNTER 2022-06-01 09:09 | Emergency (ER) | payer OTHER ==
[2022-06-01 10:26] LABS: #Basophils 0.1 thou/uL (0.0-0.2); #Eosinphils 0.1 thou/uL (0.0-0.7); #Lymphocytes 1.8 thou/uL (1.20-3.40); #Monocytes 0.4 thou/uL (0.11-0.59); #Neutrophils 4.1 thou/uL (1.40-6.50); %Basophils 0.9 % (0.0-1.0); %Eosinophils 0.9 % (0.0-10.0); %Lymphocytes 27.8 % (21.0-51.0); %Monocytes 6.7 % (0.0-10.0); %Neutrophils 63.8 % (42.0-75.0); Hemoglobin 14.1 g/dL (12.0-16.0); Mean Corpuscular Hemoglobin 31.2 pg (27.0-31.0); Mean Corpuscular Volume 94.4 fl (78.0-98.0); Mean Platelet Volume 7.6 fL (7.4-10.4); Platelet Count 465 10x3/uL (130-400); Red Blood Cell (RBC) Count 4.52 mill/uL (4.20-5.40); White Blood Cell (WBC) Count 6.5 10x3/uL (4.8-10.8)
[2022-06-01 10:40] LABS: ALT (SGPT) 34 U/L (8-55); AST (SGOT) 27 U/L (5-34); Albumin 4.3 g/dL (3.5-5.0); Alkaline Phosphatase 115 U/L (40-110); Anion Gap 13 mmol/L (10-20); BUN (Urea Nitrogen) 23 mg/dL (7.0-18.7); Bilirubin, Total 0.3 mg/dL (0.2-1.2); Calc. Creatinine Clearance 0 mL/min (70-130); Calcium 9.8 mg/dL (7.8-10.44); Carbon Dioxide 24 mmol/L (22-29); Chloride 106 mmol/L (98-107); Estimated GFR 65; Globulin 3.4 g/dL (2.4-3.5); Glucose 92 mg/dL (70-105); Potassium 4.2 mmol/L (3.5-5.1); Protein, Total 7.7 g/dL (6.0-8.3); Sodium 139 mmol/L (136-145)
[2022-06-01] MEDS ORDERED: Iopamidol-370 76% 500 ML 1 ML ONE (10:42)
== END 2022-06-01 13:13 | disposition home or self-care (01) ==
LOC: ERS 09:09
DX: R07.89 Other chest pain (principal); R09.1 Pleurisy; I10 Essential (primary) hypertension
CPT/HCPCS: 36415; 71046; 71275; 80053; 84484; 85025; 93005